=== PATIENT | female | born 1980 | race Caucasian/White ===

== ENCOUNTER 2024-12-23 22:54 | Inpatient (IN) | payer OTHER, SELFPAY ==
[2024-12-23] VITALS (7 sets, daily range): BP systolic 131–153; BP diastolic 82–104; BMI 34.7
[2024-12-23 17:07] LABS: % Basophils 0.5 % (0-2); % Eosinophils 0.9 % (0-6); % Immature Granulocytes 0.5 % (0-0.5); % Monocytes 4.7 % (1.7-9.3); % Neutrophils 79.4 % (42.2-75.2); Absolute Basophils 0.1 10^3/uL (0-0.2); Absolute Eosinophils 0.2 10^3/uL (0-0.7); Absolute Immature Granulocytes 0.1 10^3/uL (0-0.05); Absolute Lymphocytes 2.3 10^3/uL (1.2-3.4); Absolute Monocytes 0.8 10^3/uL (0.1-0.6); Absolute Neutrophils 13.1 10^3/uL (1.4-6.5); Hematocrit 43.8 % (37.0-47.0); Hemoglobin 15.3 g/dL (12.0-16.0); Mean Corp Hgb Conc. 34.9 g/dL (33.0-37.0); Mean Corpuscular Hgb 29.3 pg (27.0-31.0); Mean Corpuscular Volume 83.7 fL (81.0-99.0); Mean Platelet Volume 9.1 fL (7.4-10.4); Nucleated Red Blood Cells % 0 %; Platelet Count 274 10^3/uL (130-400); Red Blood Cell Count 5.23 10^6/uL (4.20-5.40); Red Cell Dist. Width 13.4 % (11.5-14.5); White Blood Cell Count 16.5 10^3/uL (4.8-10.8)
[2024-12-23 17:25] LABS: ALT (SGPT) 38 U/L (0-35); AST (SGOT) 34 U/L (14-36); Alkaline Phosphatase 78 U/L (38-126); Blood Urea Nitrogen 16 mg/dl (7-17); Calcium 9.1 mg/dl (8.4-10.2); Carbon Dioxide 28 mmol/L (22-30); Chloride 103 mmol/L (98-107); Glucose 98 mg/dl (70-99); Lipase 43 U/L (23-300); Potassium 4.5 mmol/L (3.5-5.1); Sodium 136 mmol/L (135-145); Total Bilirubin 0.8 mg/dl (0.2-1.3); Total Protein 6.9 g/dl (6.3-8.2); eGFR > 60.00
[2024-12-23] MEDS: OMNIPAQUE 50 ML PO (18:11)
[2024-12-23] MEDS: LR 1000 IV (18:27)
--- NOTE | 2024-12-23 21:30 | ED.GENMED ---
History of Present Illness
General
Chief Complaint: Abdominal Pain
Source: patient and spouse
Exam Limitations: none
Time Seen by Provider: 12/23/24 17:35
Nursing documentation reviewed up to this point in time: agreed with
History of Present Illness
History of Present Illness:
44-year-old female presents emergency department due to jaydon red bloody diarrhea, headache and dizziness, abdominal pain since this morning. She denies fevers, but just does not feel well. She had a partial hysterectomy in September 2024. This
was at [facility].
Past History
Past History
ED Past Medical History: Psychiatric (Anxiety, ADHD, PTSD), Other (Back pain, neuropathy, constipation) and Other (Zhanna-Danlos, mast cell activation, adenomyosis)
ED Past Surgical History: Gynecological (Partial hysterectomy, endometrial ablation, abscess)
Social History
Tobacco: Non-smoker
Alcohol: None
Drug: None
Personal:
Living: with family
Review of Systems
Review of Systems
Allergies reviewed?: Yes
All Other Systems: Not applicable
Constitutional: Reports no symptoms
EENT: Reports no symptoms
Respiratory: Reports no symptoms
Cardiac: Reports no symptoms
ABD/GI: Reports abdominal pain, diarrhea and bloody stools
: Reports no symptoms
Musculoskeletal: Reports no symptoms
Skin: Reports no symptoms
Neurological: Reports no symptoms
Endocrine: Reports no symptoms
Hematologic/Lymphatic: Reports no symptoms
Psychiatric: Reports no symptoms
Phy Exam
Physical Exam
Physical Exam:
Physical Exam
General: no apparent distress, not acutely ill
Neck: supple. no meningeal signs. normal posterior pharynx
Heart: s1/s2 regular rate and rhythm, no murmur. equal radial
pulses.
HEENT: Pupils equal round reactive to light, EOMI
Lungs: no acute respiratory distress. clear bilaterally
Abdomen: normal bowel sounds. Periumbilical and left sided abdominal tenderness, no rebound or guarding. no CVAT
Neuro: alert and oriented. no focal neurological deficits
Skin: no rash
Psychiatric: well kept. interactive and cooperative
Extremities: no edema. no calf tenderness. negative homans. good distal pulses
Course
Orders/Labs/Results
Orders:
Orders
12/23/24 16:59
Complete Blood Count/With Diff Urgent
Comprehensive Metabolic Panel Urgent
Lipase Urgent
12/23/24 17:49
Iohexol [Omnipaque] See Protocol PO NOW STA
12/23/24 17:50
CT Abd/pel W Iv And Oral Contr Urgent
Comment:
Reason For Exam: mid/lower abdominal abd pain, tenderness
Lactated Ringers [Lr] 1,000 ml IV BOLUS
12/23/24 17:52
IV Insert/Care/Rem.- Treatment PRN
12/23/24 21:35
Piperacillin/Tazo 4.5 Gram [Zosyn] 4.5 gram in 100 ml IV NOW
Abnormal Lab Results
12/23/24
16:59
WBC 16.5 H 10^3/uL
(4.8-10.8)
Abs Immat Gran (auto) 0.1 H 10^3/uL
(0-0.05)
Absolute Neuts (auto) 13.1 H 10^3/uL
(1.4-6.5)
Absolute Monos (auto) 0.8 H 10^3/uL
(0.1-0.6)
Neutrophils % 79.4 H %
(42.2-75.2)
Lymphocytes % 14.0 L %
(20.5-51.1)
ALT 38 H U/L
(0-35)
12/23/24 16:59
12/23/24 16:59
Vital Signs
Initial and Last Documented VS:
Initial Vital Signs
Temp Pulse Resp BP Pulse Ox
98.0 F 122 20 153/104 100
12/23/24 16:46 12/23/24 16:46 12/23/24 16:46 12/23/24 16:46 12/23/24 16:46
Last Documented Vital Signs
Temp Pulse Resp BP Pulse Ox
98.0 F 122 20 136/87 100
12/23/24 16:46 12/23/24 16:46 12/23/24 16:46 12/23/24 20:00 12/23/24 20:00
MDM/Problems Addressed
Differential Diagnosis Includes:
Infectious colitis, ischemic colitis
MDM/Problems Addressed:
44-year-old female with acute colitis, suspect infectious cause. Zosyn ordered. Admit to hospitalist.
Chronic conditions affecting care: Previous abdomnial surgery
Acute Exacerbation and/or Progression of Chronic Illness: Previous abdomnial surgery
*Radiology
Radiology exam reviewed: radiology read reviewed (CT abdomen pelvis shows colitis)
*Pulse Oximetry
Patient hypoxic: no
*Critical Care Note
Total Time (30-74mins, 75-104mins- exclusive of procedures): Not Applicable
Patient Management
Social determinants of health affecting care: Living situation and Strong social support
Discussion with other providers: Hospitalist
Escalation/DeEscalation of care consider admission/obs:
Admission indicated
ED Attending Note
-
Portions of this chart may have been created with voice recognition software.� Occasional wrong word or��sound alike� substitutions may have occurred due to the inherent limitations of voice recognition software.
Discharge Plan
Departure
Patient Disposition: Admit
Date of Disposition: 12/23/24
Time of Disposition: 21:38
Admit to: Med/Surg
Presentation/result/management discussed w/ accepting MD/DO: Hospitalist
Patient with high blood pressure during this ER visit?: Yes
Condition: Fair
Discharge Problem:
Acute colitis
Referrals:
Grace Laughlin MD [Family Provider] -
Interventions
Interventions:
*Risk Screen - Suicide Last Done: 12/23/24 18:28
*General Assessment Last Done: 12/23/24 18:28
*Neglect/Abuse Screening Last Done: 12/23/24 18:28
ED- Fall Risk Assessment Last Done: 12/23/24 18:28
*ED COVID-19 Vaccine History Last Done: 12/23/24 18:28
GO-Qifkch-Uoprmozypu Assessment Last Done: 12/23/24 18:28
Discharge Date and Time
Print Language: SOL[place] ISLANDER
[2024-12-23] MEDS: ZOSYN 100 IV (21:41)
--- NOTE | 2024-12-23 22:38 | HPS.HSE ---
Family Physician
-
Family Physician: Grace Laughlin MD
Chief Complaint
-
Abd pain, Bloody diarrhea
History of Present Illness
Patient is a 44y F with PMH significant for fibromyalgia, POTS and MAST cell syndrome who presents to ED complaining of crampy abdominal pain and bloody diarrhea for the past 24 hours. Patient states that she started with crampy lower abdominal
pain yesterday. She has had poor appetite in general. She had shakes / chills on Thursday but no recorded fever. Today patient has had multiple episodes of loose bowels. The last was around noon and included bright red blood.
Patient notes that she has had similar pain for months now. She underwent hysterectomy at [facility] in September and this was complicated by post-op infection / abscess. She had a drain in place and was on abx until late October 2024.
Patient states she has not had any prior colonoscopy - has concerns regarding her POTS / ability tolerate prep process.
Medical History
Past Medical History
Past Medical History: Reports Other
Additional Past Medical History:
POTS
Fibromyalgia
Mast Cell Activation Syndrome
Chronic Pain Syndrome
Zhanna Danlos
GERD / Esophagitis
Anxiety / Depression
Past Surgical History: Reports Other
Additional Past Surgical History:
Hysterectomy (09/2024)
Facial Reconstruction
Endometrial Ablation
Social History
Tobacco: Smoker (Current every day smoker. 1/2 ppd for total of 10 pack years.)
Alcohol: Occasional
Drug: None
Personal:
Living: With Family
Family History
Family History: Not pertinent
Allergies / Home Medications
Allergies reflects when Allergies were last updated in [employer].
Home Medications with original date entered in [employer]
Allergy/Medication List:
Allergies
Allergy/AdvReac Type Severity Reaction Status Date / Time
Cephalosporins Allergy Unknown Verified 12/23/24 16:54
Latex, Natural Rubber Allergy Unknown Verified 12/23/24 16:54
Home Medications
buspirone 10 mg tablet 10 mg PO TID 12/23/24
cholecalciferol (vitamin D3) 25 mcg (1,000 unit) tablet 50 mcg PO DAILY 12/23/24
cyclobenzaprine 10 mg tablet 10 mg PO TID PRN muscle spasm 12/23/24
famotidine 20 mg tablet (Pepcid) 20 mg PO BID 12/23/24
fexofenadine 180 mg tablet 180 mg PO HS 12/23/24
fluticasone furoate 27.5 mcg/actuation nasal spray,suspension 1 spray intranasal DAILY 12/23/24
gabapentin 300 mg capsule 600 mg PO DAILY 12/23/24
hydroxyzine HCl 10 mg tablet 10 mg PO TID PRN pruritis 12/23/24
hydroxyzine HCl 25 mg tablet 25 mg PO HS 12/23/24
lisdexamfetamine 30 mg capsule 30 mg PO DAILY 12/23/24
nortriptyline 25 mg capsule 25 mg PO BID 12/23/24
omeprazole 40 mg capsule,delayed release 40 mg PO DAILY 12/23/24
propranolol 20 mg tablet 20 mg PO TID 12/23/24
Review of Systems
-
History Source: Patient
A 12 point ROS was completed and negative except as noted: Yes
Constitutional: Reports Fever, Fatigue and Chills
EENT: Denies Sore Throat
Respiratory: Denies Cough or Trouble Breathing
Cardiac: Denies Chest Pain or Palpitations
Abdomen/GI: Reports Abdominal Pain, Diarrhea, Bloody Stools and Anorexia; Denies Nausea, Vomiting or Black Stools
: Denies Dysuria, Frequency or Flank Pain
Musculoskeletal: Denies Joint Pain or Edema
Neurological: Denies Dizzy or Headache
Psych: Denies Depression or Anxiety
Physical Exam
Vital Signs
Vital Signs
Temp Pulse Resp BP Pulse Ox
98.0 F 122 20 133/92 99
12/23/24 16:46 12/23/24 16:46 12/23/24 16:46 12/23/24 21:40 12/23/24 21:40
Physical Exam
General: Other (Tearful, anxious 44y F.)
HEENT: Moist mucous membranes and PERRLA
Respiratory: Clear; No Wheezes, Rales or Rhonchi
Cardiac: S1/S2 and Regular Rhythm; No Murmur
GI: Soft, Non Distended, Normal Bowel Sounds and Other (Pos tenderness lower abdomen - LLQ > RLQ.)
Musculoskeletal: No Clubbing, No Cyanosis and No Edema
Neuro: AO x 3
Laboratory Results
-
12/23/24 16:59
12/23/24 16:59
Laboratory Results
Total Bilirubin 0.8 mg/dl (0.2-1.3) 12/23/24 16:59
AST 34 U/L (14-36) 12/23/24 16:59
ALT 38 U/L (0-35) H 12/23/24 16:59
Alkaline Phosphatase 78 U/L (38-126) 12/23/24 16:59
Lipase 43 U/L (23-300) 12/23/24 16:59
Impression/Plan
-
A/P: Patient is a 44y F with PMH significant for chronic pain, fibromyalgia and POTS who presents to ED complaining of crampy abdominal pain and bloody diarrhea.
Acute Descending Colitis
- Admit for further evaluation and treatment.
- Suspect that this is acute, infectious colitis given presentation / symptoms.
- Similarity to post-hysterectomy discomfort is likely coincidental given location of inflammation / infection.
- IV abx with Zosyn for now.
- Check stool studies / cultures.
- Supportive care with IVFs, pain control, etc.
- GI evaluation for additional recommendations.
- Would likely benefit from eventual colonoscopy - if prep can be arranged / tolerated.
s/p Hysterectomy
Post-Op Infection / Abscess
- CT done today shows no evidence of residual abscess.
POTS
Fibromyalgia
Mast Cell Activation Syndrome
Chronic Pain Syndrome
- Stable. Continue usual outpatient medications regimen without changes.
- Follow-up with usual outpatient providers after discharge.
DVT Prophylaxis: SCDs
Code Status: Full
[2024-12-23 22:47] LABS: Lactic Acid 0.7 mmol/L (0.7-2.0)
[2024-12-24] VITALS: BP 130/93
[2024-12-24 01:23] VITALS: BP 102/68
[2024-12-24 01:34] VITALS: BP 102/68
[2024-12-24 01:35] VITALS: BMI 34.8
[2024-12-24] MEDS: NSS 1000 IV ×2 (01:49→10:55)
[2024-12-24] MEDS: TORADOL 15 MG IV (01:50)
[2024-12-24] MEDS: ZOSYN 50 IV ×2 (04:16→09:07)
[2024-12-24 05:37] LABS: Hematocrit 36.7 % (37.0-47.0); Hemoglobin 12.9 g/dL (12.0-16.0); Mean Corp Hgb Conc. 35.1 g/dL (33.0-37.0); Mean Corpuscular Hgb 29.3 pg (27.0-31.0); Mean Corpuscular Volume 83.4 fL (81.0-99.0); Mean Platelet Volume 9.4 fL (7.4-10.4); Platelet Count 219 10^3/uL (130-400); Red Cell Dist. Width 13.3 % (11.5-14.5); White Blood Cell Count 10.2 10^3/uL (4.8-10.8)
[2024-12-24 05:47] LABS: Blood Urea Nitrogen 13 mg/dl (7-17); Calcium 7.9 mg/dl (8.4-10.2); Carbon Dioxide 25 mmol/L (22-30); Chloride 105 mmol/L (98-107); Estimated Creatinine Clearance 90 ml/min; Glucose 90 mg/dl (70-99); Potassium 3.8 mmol/L (3.5-5.1); Sodium 134 mmol/L (135-145); eGFR > 60.00
[2024-12-24 07:31] VITALS: BP 101/69
--- NOTE | 2024-12-24 08:15 | CON.GI ---
Consultation
-
Date/Time Consultation Requested: 12/24/24117
Date/Time Consultation Performed: 12/24/24824
Requesting Provider: Dr Dahl
Performing Provider: Dr. Castle / Katarina Clement PA-C
Reason for Consultation: colitis
Medical History
Chief Complaint / HPI
Chief Complaint: bloody diarrhea
History of Present Illness:
This is a 44 year old female with a past medical history of POTS, fibromyalgia, Zhanna Danlos, GERD, anxiety, depression, GERD and IBS-mixed who presented to the ER yesterday with crampy abdominal pain and bloody diarrhea, described as bright red
blood. Symptoms came on suddenly. No fever, chills, nausea or vomiting. Initial ER labs showed elevated WBC count at 16.5. LFTs were normal with the exception of slightly elevated ALT (38). CT abdomen/pelvis showed moderate acute colitis of the
descending colon and mild colitis of the sigmoid and rectum. Also noted is mild fatty liver. She was started on IV antibiotics. She states she took Imodium yesterday and has not had any recurrence of the diarrhea since then. No sick contacts or
recent travel. She was recently on antibiotics for a prolonged course as she developed a post-op infection/abscess following hysterectomy in September 2024. She reports a typical baseline bowel pattern with both diarrhea and constipation, and was
previously diagnosed with IBS-mixed, but has never had rectal bleeding like this before. She is followed by GI at [place], but is looking for a new GI doctor that is closer. She has never had a colonoscopy. This was attempted about 1 year ago, but
she did not tolerate the prep due to her underlying POTS. There is no family history of colon cancer or IBD.
Past Medical History
Past Medical History: Other (POTS, fibromyalgia, Zhanna Danlos, GERD, anxiety, depression, GERD and IBS-mixed)
Past Surgical History: Other (hysterectomy 09/2024 ([place]), endometrial ablation, facial reconstruction)
Social History
Tobacco: Smoker (1/2 PPD)
Alcohol: Occasional (1-2 drinks/week)
Drug: None
Living: With Family
Employment: Not Employed
Family History
Family History: Other (No family history of GI malignancies or IBD)
Allergies / Home Medications
Allergy/AdvReac Type Severity Reaction Status Date / Time
Cephalosporins Allergy Unknown Verified 12/23/24 16:54
Latex, Natural Rubber Allergy Unknown Verified 12/23/24 16:54
�Medication �Instructions �Recorded
buspirone 10 mg tablet 10 mg PO TID 12/23/24
cholecalciferol (vitamin D3) 25 50 mcg PO DAILY 12/23/24
mcg (1,000 unit) tablet
cyclobenzaprine 10 mg tablet 10 mg PO TID PRN muscle spasm 12/23/24
famotidine 20 mg tablet (Pepcid) 20 mg PO BID 12/23/24
fexofenadine 180 mg tablet 180 mg PO HS 12/23/24
fluticasone furoate 27.5 1 spray intranasal DAILY 12/23/24
mcg/actuation nasal
spray,suspension
gabapentin 300 mg capsule 600 mg PO DAILY 12/23/24
hydroxyzine HCl 10 mg tablet 10 mg PO TID PRN pruritis 12/23/24
hydroxyzine HCl 25 mg tablet 25 mg PO HS 12/23/24
lisdexamfetamine 30 mg capsule 30 mg PO DAILY 12/23/24
nortriptyline 25 mg capsule 25 mg PO BID 12/23/24
omeprazole 40 mg capsule,delayed 40 mg PO DAILY 12/23/24
release
propranolol 20 mg tablet 20 mg PO TID 12/23/24
Review of Systems
-
History Source: Patient
All other systems: A 12 pt ROS was Negative except as stated above in HPI
Vital Signs
Temp Pulse Resp BP Pulse Ox
98.4 F 83 20 101/69 96
12/24/24 07:44 12/24/24 01:34 12/24/24 01:34 12/24/24 07:31 12/24/24 07:44
Physical Exam
Exam
General: Well Developed, Well Nourished and No Apparent Distress
Respiratory: Clear
Cardiac: Regular Rhythm
GI: Soft, Non Distended, Normal Bowel Sounds and Tender (+mild generalized tenderness of the lower abdomen, worse in LLQ)
Skin: Warm and Dry
Neuro: AO x 3
Psych: Calm
Results
WBC 10.2 10^3/uL (4.8-10.8) 12/24/24 05:24
Hgb 12.9 g/dL (12.0-16.0) 12/24/24 05:24
Hct 36.7 % (37.0-47.0) L 12/24/24 05:24
MCV 83.4 fL (81.0-99.0) 12/24/24 05:24
Plt Count 219 10^3/uL (130-400) D 12/24/24 05:24
Absolute Neuts (auto) 13.1 10^3/uL (1.4-6.5) H 12/23/24 16:59
Sodium 134 mmol/L (135-145) L 12/24/24 05:24
Potassium 3.8 mmol/L (3.5-5.1) 12/24/24 05:24
Chloride 105 mmol/L (98-107) 12/24/24 05:24
Carbon Dioxide 25 mmol/L (22-30) 12/24/24 05:24
BUN 13 mg/dl (7-17) 12/24/24 05:24
Creatinine 0.8 mg/dL (0.6-1.0) 12/24/24 05:24
Calcium 7.9 mg/dl (8.4-10.2) L 12/24/24 05:24
Total Bilirubin 0.8 mg/dl (0.2-1.3) 12/23/24 16:59
AST 34 U/L (14-36) 12/23/24 16:59
ALT 38 U/L (0-35) H 12/23/24 16:59
Alkaline Phosphatase 78 U/L (38-126) 12/23/24 16:59
Lipase 43 U/L (23-300) 12/23/24 16:59
Diagnostic Image Results:
CT abdomen/pelvis w/ IV and oral contrast 12/23/24:
1. MODERATE ACUTE COLITIS throughout the DESCENDING COLON. Mild colitis in the sigmoid colon and rectum. Diagnostic possibilities are (1) acute infectious colitis, (2) acute ischemic colitis, or (3) acute ulcerative colitis.
2. Mild diffuse hepatic steatosis.
3. Previous hysterectomy.
4. Grade 1 anterolisthesis of L5 on S1 secondary to bilateral L5 pars interarticularis spondylolysis.
Prior GI Procedures:
EGD: ~1 year ago, at [place]
Colonoscopy: never
Assessment / Plan
-
44 year old female with a history of POTS, fibromyalgia, Zhanna Danlos, GERD, anxiety, depression, GERD and IBS-mixed currently admitted with acute colitis after sudden onset of crampy abdominal pain and bloody diarrhea.
IMPRESSION / PLAN:
Acute Colitis of the descending colon/sigmoid and rectum
- etiology of colitis: infectious vs inflammatory (IBD) vs ischemic (less likely)
- stool cultures including C diff (given recent antibiotics) to rule out infectious cause
- fecal calprotectin
- continue empiric IV Zosyn
- continue IV fluids
- BRAT diet, as tolerated
- pt will need eventual colonoscopy - arrange outpatient GI follow-up
Fatty Liver
- noted on CT imaging
- LFTs normal with the exception of ALT 38
- further workup can be done outpatient
GERD
- well-controlled on omeprazole and famotidine
All other medical issues managed as per hospitalist. We will follow.
-
-
Thank you for consultation and allowing me to participate in the patient's care. Please call the project management consultant GI physician during the after hours with any questions or concerns.
[2024-12-24] MEDS: VITAMIN D3 (cholecalciferol) 50 MCG PO (09:05)
[2024-12-24] MEDS: PEPCID 20 MG PO (09:05)
[2024-12-24] MEDS: BUSPAR 10 MG PO (09:05)
[2024-12-24] MEDS: PAMELOR 25 MG PO (09:07)
[2024-12-24] MEDS: INDERAL 20 MG PO (09:07)
[2024-12-24] MEDS: PROTONIX 40 MG PO (09:07)
[2024-12-24] MEDS: NEURONTIN 600 MG PO (09:07)
[2024-12-24] MEDS: CIPRO 400 MG 200 IV (10:53)
[2024-12-24] MEDS: NSS IV (10:59)
[2024-12-24] MEDS: FLAGYL 500 MG 100 IV (12:54)
--- NOTE | 2024-12-24 12:56 | W.PN.HOSP.TC ---
Addendum entered and electronically signed by Bishop Valente DO 01/02/25 13:34:
Sepsis due to acute infectious colitis -unknown organism.
Original Note:
Today's Communication/Plan
-
Diet as tolerated
Possible discharge
Assessment / Plan
Assessment / Plan
Gen-AAOx3, NAD
HEENT-NC, AT, anicteric, clear oral mm
Neck-supple
CV-reg, no M, +S1/S2
Lungs-clear B/L
Abd-soft, NT, ND
Ext-no edema
Musculoskeletal-no cyanosis, clubbing
Skin-warm and dry
Neuro-grossly non-focal
Psych-calm, cooperative
Acute colitis -involving descending colon, noted on CT. Suspect infectious etiology. Doubt ischemia or inflammatory colitis.
Symptoms improved rapidly overnight. Leukocytosis resolved. Has not had any diarrhea in the hospital. Diet as tolerated.
Appreciate GI service. Patient would like to follow-up with GI in [facility].
Hyponatremia -mild, 134. Monitor for now. Getting IV fluids.
POTS syndrome
Obesity due to excess calories
Full code
Dispo -potential discharge sometime in the next 24 hours if tolerating diet and stable. Patient agreeable.
Anticipated Discharge: Within 24 hours
Subjective/Interval History
-
Date of Service: December 24, 2024
Patient seen and examined. Overall feeling better. No complaints.
Objective Data
-
Labs:
Laboratory Results
12/24/24
05:24
WBC 10.2
Hgb 12.9
Hct 36.7 L
Plt Count 219 D
Sodium 134 L
Potassium 3.8
Chloride 105
Carbon Dioxide 25
BUN 13
Creatinine 0.8
Glucose 90
Calcium 7.9 L
Vital Signs:
Vital Signs
Temp Pulse Resp BP Pulse Ox
98.4 F 83 20 101/69 96
12/24/24 07:44 12/24/24 01:34 12/24/24 01:34 12/24/24 07:31 12/24/24 07:44
I&O
12/23/24 12/24/24 12/25/24
06:59 06:59 06:59
Intake Total 50 / 50
Balance 50 / 50
Review of Systems
-
History Source: Patient
All other systems: Reviewed and negative
--- NOTE | 2024-12-24 13:03 | W.DS.TRANS ---
DC Summary - Production Generalist
-
Discharge Instructions:
Discharge Diagnosis/Procedures Acute colitis
Diet Low Residue
Activity As tolerated
Driving Restrictions As prior to admission
Bathing Restrictions None
Instructions:
Stand-Alone Forms:
Changes to Home Medications: No
Discharge Medications:
DC Medications w/original date entered in [facility] [employer]
buspirone 10 mg tablet 10 mg PO TID Mental Health/Anxiety 12/23/24
cholecalciferol (vitamin D3) 25 mcg (1,000 unit) tablet 50 mcg PO DAILY Supplement 12/23/24
cyclobenzaprine 10 mg tablet 10 mg PO TID PRN muscle spasm 12/23/24
famotidine 20 mg tablet (Pepcid) 20 mg PO BID Gastrointestinal Issue 12/23/24
fexofenadine 180 mg tablet 180 mg PO HS Allergies 12/23/24
fluticasone furoate 27.5 mcg/actuation nasal spray,suspension 1 spray intranasal DAILY Congestion 12/23/24
gabapentin 300 mg capsule 600 mg PO DAILY Pain 12/23/24
hydroxyzine HCl 10 mg tablet 10 mg PO TID PRN pruritis 12/23/24
hydroxyzine HCl 25 mg tablet 25 mg PO HS itch 12/23/24
lisdexamfetamine 30 mg capsule 30 mg PO DAILY Mental Health/Anxiety 12/23/24
nortriptyline 25 mg capsule 25 mg PO BID Mental Health/Anxiety 12/23/24
omeprazole 40 mg capsule,delayed release 40 mg PO DAILY gerd 12/23/24
propranolol 20 mg tablet 20 mg PO TID Blood Pressure 12/23/24
Home Medication Changes
Pending Results: No
[2024-12-24 13:53] VITALS: BP 97/65
--- NOTE | 2024-12-24 14:37 | CM ---
CM reviewed medical records. Plan for discharge to home with no needs.
PLAN: Home, no needs.
--- NOTE | 2024-12-26 14:52 | PN.CDI ---
CDI
- -
CDI:
Physician Documentation Request
Admit Date: 12/23/24 22:54
Dear Doctor Sidra,
Please review the following and provide your response in the progress notes.
Clinical Indicators:
- On admission: WBC 16.5, HR 122
- 2L IVF
- IV abx Cipro, Flagyl, Zosyn
- 12/26 DC Summary 'Acute infectious colitis'
- pmh fibromyalgia,
Please clarify which most accurately describes the patient:
Sepsis due to acute infectious colitis
Systemic manifestations of infection, with 2 or more SIRS criteria which include:
Fever > 100.4 degrees F or hypothermia < 96.8 degrees F
Leukocytosis - WBC > 12,000 or leukopenia, WBC < 4,000 or > 10% bands
Tachycardia - > 90 beats per minute
Tachypnea - RR > 20 breaths per minute or PaCO2 < 32 mmHg
Source: Merck Manual 2013
Indicate the known or suspected organism
Indicate the known or suspected underlying infection, such as UTI, pneumonia or cellulitis
Indicate if a suspected bacterial infection of unknown source
Indicate if associated with an implanted device such as a F/C, PICC line, orthopedic hardware etc.
Indicate if there is associated organ dysfunction, such as renal or respiratory failure
SIRS due to a non-infectious source
Indicate the known or suspected etiology
Indicate if there is associated organ dysfunction, such as renal or respiratory failure
Other
Use of terms such as suspected, likely, concern for, or probable (associated with a specific diagnosis that is being evaluated, monitored, or treated as if it exists) are acceptable and can be coded in the inpatient setting, when documented at the
time of discharge.
Thank you,
Edison Fernández RN
CDI Specialist
Please use your independent medical judgment in providing your response.
[2024-12-29 17:52] LABS: Calprotectin, Fecal 695 ug/g (<=49)
== END 2024-12-24 16:40 | disposition home or self-care (01) | DRG 872 ==
LOC: ED 22:54
PROVIDERS: Emergency Medicine; ADMITTING PHYSICIAN Hospitalist; ATTENDING PHYSICIAN Hospitalist; CONSULT PHYSICIAN Internal Medicine Gastroenterology; EMERGENCY PHYSICIAN Emergency Medicine; FAMILY PHYSICIAN Family Medicine
DX: A41.9 Sepsis, unspecified organism (principal); A09 Infectious gastroenteritis and colitis, unspecified; E87.1 Hypo-osmolality and hyponatremia; Q79.60 Ehlers-Danlos syndrome, unspecified; D89.40 Mast cell activation, unspecified; F17.210 Nicotine dependence, cigarettes, uncomplicated; F32.A Depression, unspecified; F41.9 Anxiety disorder, unspecified; G89.4 Chronic pain syndrome; K58.2 Mixed irritable bowel syndrome; K21.00 Gastro-esophageal reflux disease with esophagitis, without bleeding; K76.0 Fatty (change of) liver, not elsewhere classified; G90.A Postural orthostatic tachycardia syndrome [POTS]; F90.9 Attention-deficit hyperactivity disorder, unspecified type; E66.09 Other obesity due to excess calories; M79.7 Fibromyalgia; Z68.34 Body mass index [BMI] 34.0-34.9, adult; Z88.1 Allergy status to other antibiotic agents; Z79.899 Other long term (current) drug therapy
CPT/HCPCS: 74177; 80048; 80053; 83605; 83690; 83993; 85025; 85027; 87045; 87046; 87324; 87427; 87449; 96361; 96365; 99284; 99406; Q9967

== ENCOUNTER 2025-09-07 17:28 | Emergency (ER) | payer OTHER, SELFPAY ==
[2025-09-07 17:38] VITALS: BP 146/99
[2025-09-07 17:58] LABS: Hematocrit 43.8 % (37.0-47.0); Hemoglobin 15.4 g/dL (12.0-16.0); Mean Corp Hgb Conc. 35.2 g/dL (33.0-37.0); Mean Corpuscular Volume 84.7 fL (81.0-99.0); Nucleated Red Blood Cells % 0 %; Platelet Count 306 10^3/uL (130-400); Red Cell Dist. Width 12.6 % (11.5-14.5)
[2025-09-07 17:59] LABS: Urine Character Clear (Clear)
[2025-09-07 18:17] LABS: Urine Red Blood Cell 0-2 /HPF (0-2); Urine Squamous Cell >30 /LPF (Few); Urine White Cell 0-2 /HPF (0-5)
[2025-09-07 18:24] LABS: ALT (SGPT) 24 U/L (0-35); AST (SGOT) 24 U/L (14-36); Albumin 4.4 g/dl (3.5-5.0); Alkaline Phosphatase 76 U/L (38-126); Blood Urea Nitrogen 12 mg/dl (7-17); Calcium 9.4 mg/dl (8.4-10.2); Carbon Dioxide 28 mmol/L (22-30); Chloride 100 mmol/L (98-107); Glucose 87 mg/dl (70-99); Lipase 89 U/L (23-300); Potassium 4.2 mmol/L (3.5-5.1); Sodium 132 mmol/L (135-145); Total Protein 7.5 g/dl (6.3-8.2); eGFR > 60.00
[2025-09-07 18:39] VITALS: BP 145/106
[2025-09-07 18:40] VITALS: BMI 36.5
[2025-09-07 19:00] VITALS: BP 142/103
--- NOTE | 2025-09-07 19:01 | ED.GENMED ---
History of Present Illness
General
Chief Complaint: Abdominal Symptoms
Source: patient and records
Exam Limitations: none
Time Seen by Provider: 09/07/25 18:36
History of Present Illness
History of Present Illness:
45yoF with a history of POTS, Ehler's Danlos syndrome, MAST cell activation syndrome, and fibromyalgia presenting for evaluation of diarrhea. Patient has been experiencing loose stools for about 2 weeks. She started to feel 'flu-mandy' 2 days ago.
Her diarrhea worsened today. Her bowel movements are described as greasy and explosive. She states she just does not feel well. She also reports an shortness of breath which feels worse than usual. She denies any hematochezia, vomiting, fevers.
Patient was hospitalized in December for acute colitis and stayed overnight. Stool studies were negative and she was treated with Levaquin and Flagyl. They attempted to do an outpatient colonoscopy at [facility] but she was unable to tolerate the prep
due to her POTS. She had a flex sigmoidoscopy which was reportedly normal as well as a negative Cologuard test. No recent travel, sick contacts, suspicious food intake, or recent antibiotics.
Past History
Past History
ED Past Medical History: Psychiatric (Anxiety, ADHD, PTSD), Other (Back pain, neuropathy, constipation) and Other (Zhanna-Danlos, mast cell activation, adenomyosis)
ED Past Surgical History: Gynecological (Partial hysterectomy, endometrial ablation, abscess)
Social History
Tobacco: Non-smoker
Alcohol: None
Drug: None
Personal:
Living: with family
Phy Exam
General Physical Exam
General Presentation: well appearing and no apparent distress
General Skin: warm and dry
General Habitus: normal
General Mental: alert
ENT Exam
ENT Exam: normocephalic
Cardiovascular Exam
Cardiovascular Exam: regular rate/rhythm
Pulmonary Exam
Pulmonary Exam: lungs clear, no respiratory distress, no rales, no crackles, no rhonchi and no wheezing
Gastrointestinal Exam
Gastrointestinal Exam: soft, non distended and other (+Tenderness throughout lower abdomen. Abdomen soft, nondistended. No rebound or guarding.)
Neurological Exam
Neurological Exam: alert
[place] Coma Scale
Eye Opening: Spontaneous
Verbal Response: Oriented
Motor Response: Obeys Commands
GCS Total Score: 15
Skin Exam
Skin Exam: normal color and warm/dry
Psychiatric Exam
Psychiatric Exam: normal mood/affect
Course
Orders/Labs/Results
Orders:
Orders
09/07/25 17:49
Complete Blood Count/With Diff Urgent
Comprehensive Metabolic Panel Urgent
Lipase Urgent
Magnesium Urgent
Comment: ADD ON
Urinalysis Reflex To Culture Urgent
Date Specimen was Collected: 09/07/25
Time Specimen was Collected: 17:41
Urine Microscopic Reflex Cult Urgent
Urine Culture Urgent
BEREKET Source: U
Specimen Description:
Date Specimen was Collected: 09/07/25
Time Specimen was Collected: 17:41
09/07/25 19:00
Add On- LAB Urgent
Tests Added?: magnesium
Electrocardiogram (*1) Urgent
Reason for Study: Shortness of Breath
CT Abd/pelvis W Iv Cont Urgent
Comment:
Reason For Exam: lower abd pain, diarrhea
EKG- Treatment ONCE
Stool Culture Urgent
BEREKET Source: Feces/Stool
Specimen Description:
Date Specimen was Collected: 09/07/25
Time Specimen was Collected: 19:22
0.9% Sodium Chloride 1000 ml [Nss] 1,000 ml IV BOLUS
Ondansetron Injectable [Zofran] 4 mg IV NOW STA
09/07/25 19:25
Troponin I Urgent
Abnormal Lab Results
09/07/25
17:49
WBC 14.6 H 10^3/uL
(4.8-10.8)
Abs Immat Gran (auto) 0.1 H 10^3/uL
(0-0.05)
Absolute Neuts (auto) 8.5 H 10^3/uL
(1.4-6.5)
Absolute Lymphs (auto) 4.5 H 10^3/uL
(1.2-3.4)
Absolute Monos (auto) 1.0 H 10^3/uL
(0.1-0.6)
Immature Gran % 0.6 H %
(0-0.5)
Sodium 132 L mmol/L
(135-145)
Urine Ketones 3+ A
(Negative)
Leukocyte Esterase Rfl 1+ A
(Negative)
Urine Bacteria (Reflex) Few A
(Negative)
Urine Albumin (Reflex) 1+ A
(Neg - Trace)
09/07/25 17:49
09/07/25 17:49
Vital Signs
Initial and Last Documented VS:
Initial Vital Signs
Temp Pulse Resp BP Pulse Ox
98.3 F 96 16 146/99 100
09/07/25 17:38 09/07/25 17:38 09/07/25 17:38 09/07/25 17:38 09/07/25 17:38
Last Documented Vital Signs
Temp Pulse Resp BP Pulse Ox
98.3 F 75 13 142/103 100
09/07/25 17:38 09/07/25 19:30 09/07/25 19:30 09/07/25 19:00 09/07/25 19:30
MDM/Problems Addressed
Differential Diagnosis Includes:
45yoF here with diarrhea and fatigue. Hospitalized for colitis earlier this year. VSS. She is well-appearing in no distress. No signs of peritonitis on abdominal exam. Differential diagnosis includes but is not limited to: Viral illness,
gastroenteritis, infectious colitis, diverticulitis
Initial ED plan: Workup initiated in triage and white count is elevated at 14.6 which is nonspecific. Sodium 132, remainder of electrolytes are normal. Renal function also normal. Will check magnesium, troponin/EKG, stool culture, and CT abdomen.
IV Zofran and fluid bolus for symptoms.
*Pulse Oximetry
SaO2: 100
Oxygen Mode of Delivery: Room air
Patient hypoxic: no
*EKG
Interpreted by ED Provider?: Yes
EKG Intrepretation Date: 09/07/25
Heart Rate: 76
Rate: normal
Rhythm: sinus
[place]: normal axis
Interval: normal interval
QRS Pattern: normal QRS
Ischemia: no ischemia
*Critical Care Note
Total Time (30-74mins, 75-104mins- exclusive of procedures): Not Applicable
Update Note
Update Note:
CT shows possible gastritis and mild distention of the proximal colon. No other acute findings on imaging. Specifically, there is no evidence of colitis. Patient unable to provide stool sample during ED stay. She is stable for discharge.
Offered prescription for Zofran which she already has at home. Supportive care discussed and advised follow-up with PCP. ED return precautions reviewed and she was discharged in stable condition.
ED Attending Note
-
Portions of this chart may have been created with voice recognition software.� Occasional wrong word or��sound alike� substitutions may have occurred due to the inherent limitations of voice recognition software.
Discharge Plan
Departure
Patient Disposition: Home (Routine Discharge)
Date of Disposition: 09/07/25
Time of Disposition: 20:52
Patient with high blood pressure during this ER visit?: Yes
Discharge Problem:
Acute diarrhea, Nausea
Instructions: Diarrhea in teens and adults
Prescriptions:
No Action
cyclobenzaprine 10 mg Tablet
10 mg PO TID PRN (Reason: muscle spasm)
fexofenadine 180 mg Tablet
180 mg PO HS
omeprazole 40 mg Capsule,Delayed Release(Dr/Ec)
40 mg PO DAILY
nortriptyline 25 mg Capsule
25 mg PO BID
famotidine [Pepcid] 20 mg Tablet
20 mg PO BID
buspirone 10 mg Tablet
10 mg PO TID
gabapentin 300 mg Capsule
600 mg PO DAILY
hydroxyzine HCl 25 mg Tablet
25 mg PO HS
propranolol 20 mg Tablet
20 mg PO TID
hydroxyzine HCl 10 mg Tablet
10 mg PO TID PRN (Reason: pruritis)
cholecalciferol (vitamin D3) 25 mcg (1,000 unit) Tablet
50 mcg PO DAILY
lisdexamfetamine 30 mg Capsule
30 mg PO DAILY
fluticasone furoate 27.5 mcg/actuation [place],Suspension
1 spray INTRANASAL DAILY
Referrals:
Grace Laughlin MD [Family Provider]
Activity Restrictions/Additional Instructions:
Drink plenty of fluids and rest. Eat a bland diet (bananas, rice, applesauce, toast) until symptoms improve.
Please follow-up with your family doctor. Return to the ER with any new or worsening symptoms.
Interventions
Interventions:
*Risk Screen - Suicide Last Done: 09/07/25 17:38
*General Assessment Last Done: 09/07/25 17:38
*Neglect/Abuse Screening Last Done: 09/07/25 17:38
*ED- Fall Risk Assessment Last Done: 09/07/25 18:40
*ED COVID-19 Vaccine History Last Done: 09/07/25 18:40
*ED Influenza Vaccine History Last Done: 09/07/25 18:40
*Nursing Disposition Last Done: 09/07/25 21:47
BP-Nwhmxt-Lvcvjlveql Assessment Last Done: 09/07/25 18:36
Discharge Date and Time
Discharge Date/Time: 09/07/25 21:47
Print Language: VENEZUELAN
[2025-09-07] MEDS: NSS 1000 IV (19:26)
[2025-09-07] MEDS: ZOFRAN 4 MG IV (19:26)
[2025-09-07 19:30] LABS: Magnesium 2.0 mg/dl (1.6-2.3)
[2025-09-07 19:55] LABS: Troponin I < 0.012 ng/ml
== END 2025-09-07 21:47 | disposition home or self-care (01) ==
LOC: EMR 17:28
PROVIDERS: Emergency Medicine; Physician Assistant; EMERGENCY PHYSICIAN Emergency Medicine; FAMILY PHYSICIAN Family Medicine
DX: R19.7 Diarrhea, unspecified (principal); R11.0 Nausea; R03.0 Elevated blood-pressure reading, without diagnosis of hypertension; G90.A Postural orthostatic tachycardia syndrome [POTS]; D89.40 Mast cell activation, unspecified; M79.7 Fibromyalgia; F41.9 Anxiety disorder, unspecified; F90.9 Attention-deficit hyperactivity disorder, unspecified type; F43.10 Post-traumatic stress disorder, unspecified; G62.9 Polyneuropathy, unspecified; N80.03 Adenomyosis of the uterus; Z90.711 Acquired absence of uterus with remaining cervical stump
CPT/HCPCS: 99284; 96374; 96361; 74177; 80053; 81003; 81015; 83690; 83735; 84484; 85025; 87086; 93005; Q9967

== ENCOUNTER 2025-10-04 05:47 | Inpatient (IN) | payer OTHER, SELFPAY ==
[2025-10-03 22:27] VITALS: BP 203/126
[2025-10-03 22:48] LABS: Hematocrit 46.1 % (37.0-47.0); Hemoglobin 16.3 g/dL (12.0-16.0); Mean Corp Hgb Conc. 35.4 g/dL (33.0-37.0); Mean Corpuscular Volume 83.1 fL (81.0-99.0); Nucleated Red Blood Cells % 0 %; Platelet Count 266 10^3/uL (130-400); Red Cell Dist. Width 12.5 % (11.5-14.5)
[2025-10-03 23:12] LABS: ALT (SGPT) 24 U/L (0-35); AST (SGOT) 26 U/L (14-36); Albumin 4.5 g/dl (3.5-5.0); Alkaline Phosphatase 72 U/L (38-126); Blood Urea Nitrogen 13 mg/dl (7-17); Calcium 9.5 mg/dl (8.4-10.2); Carbon Dioxide 24 mmol/L (22-30); Chloride 102 mmol/L (98-107); Glucose 145 mg/dl (70-99); Lipase 87 U/L (23-300); Potassium 4.3 mmol/L (3.5-5.1); Sodium 136 mmol/L (135-145); Total Protein 7.5 g/dl (6.3-8.2); eGFR > 60.00
[2025-10-03 23:35] VITALS: BMI 35.1
[2025-10-03 23:44] VITALS: BP 144/105
[2025-10-04] VITALS (14 sets, daily range): BP systolic 81–144; BP diastolic 44–98
--- NOTE | 2025-10-04 00:08 | ED.GENMED ---
History of Present Illness
<Yari Aguilar PA-C - Last Filed: 10/04/25 08:07>
General
Chief Complaint: Dehydration Symptoms
Source: patient
Exam Limitations: none
Time Seen by Provider: 10/04/25 00:07
Nursing documentation reviewed up to this point in time: agreed with
History of Present Illness
History of Present Illness:
Note:
CHIEF COMPLAINT(S)
Diarrhea and abdominal pain.
HISTORY OF PRESENT ILLNESS
The patient is a 45-year-old female with a history of fibro myalgia, POTS, mast cell activation syndrome, PTSD, Zhanna-Danlos syndrome, abdominal issues, presenting with a chief complaint of diarrhea for the past month. She reports that has gotten
acutely worse this past week and she reports that because of this issue, she has not been able to carry out activities of daily living or work. The patient describes the diarrhea as occurring every time she ingests anything, resulting in either
liquid stool or air. She reports accompanying abdominal pain, which she feels is generalized throughout her abdomen, as well as in her back, right side, arm, and hand. She rates the pain as severe and persistent, interfering with her ability to
perform daily activities.
The patient has a significant medical history, including a hysterectomy in September of last year as well as hospital stay a year ago due to colitis, during which she was hospitalized for a week. she had post surgical infection and she was
discharged with a drain, which was supposed to resolve the remaining infection on its own, but she feels she never completely recovered from the infection.
The patient mentions chronic pain and has been recently started on duloxetine for neurogenic pain, which has provided some relief. She also describes feeling constantly fatigued and weak, exacerbated by a history of not feeling right since her
hospitalization.
Additionally, she reports previous evaluations, including a recent computed tomography scan a couple of weeks ago and sigmoid endoscopy, which did not reveal any new abnormalities according to her gastrointestinal specialist. She expresses concern
about her current condition reflecting an unresolved infection.
PAST MEDICAL AND SURIGICAL HISTORY
The patient underwent a colectomy in September of the previous year due to colitis. She also reports a history of elevated white blood cell counts and ongoing abdominal infections.
ADDITIONAL HISTORY OBTAINED FROM SOURCES OTHER THAN THE PATIENT
Information obtained corroborates the patients recollection of events and symptoms, emphasizing the persistent nature of her symptoms and the impact on her daily functioning.
CHRONIC MEDICAL CONDITIONS SIGNIFICANTLY AFFECTING CARE
The patient has a history of colitis and has undergone a colectomy. Her chronic pain is currently managed with duloxetine.
SOCIAL DETERMINANTS AFFECTING HEALTH
The patient reports significant stress related to her partner, indicating a lack of support. She also expresses concerns about not being able to perform daily activities or work, contributing to her distress.
ALLERGIES
The patient reports an allergy to steroids, which induce systemic side effects and are not localized.
MEDICATIONS
Duloxetine for neurogenic pain.
REVIEW OF SYSTEMS
- Gastrointestinal: Persistent diarrhea for one month, abdominal pain.
- Musculoskeletal: Pain in the hand, arm, back, and legs.
- General: Fatigue, weakness, inability to carry out normal activities.
PHYSICAL EXAM
General: Alert, no acute distress.
Skin: Warm, dry.
Head: Normocephalic, atraumatic.
Neck: Supple, trachea midline.
Eye Ears, nose, mouth and throat: Oral mucosa moist.
Cardiovascular: Tachycardia noted. No murmurs. Normal peripheral perfusion, No edema.
Respiratory: Respirations are non-labored.
Gastrointestinal: Diffuse abdominal tenderness, particularly in the lower abdomen and right side, but no palpable abdominal mass
Back: Normal range of motion, Normal alignment.
Musculoskeletal: Normal ROM, normal strength.
Neurological: Alert and oriented to person, place, time, and situation.
Psychiatric: Tearful. Cooperative, appropriate mood & affect.
PROBLEM LIST
Acute:
- Diarrhea
- Abdominal pain
- Elevated white blood cell count
- Dehydration
Chronic:
- History of colitis and colectomy
PLAN
1. Initiate intravenous fluids to address dehydration.
2. Administer pain management with medications as previously effective, considering patient preference for Dilaudid over morphine.
3. Conduct a repeat computed tomography scan to evaluate current abdominal status.
4. Monitor white blood cell count and evaluate the need for hospitalization for further investigation and treatment.
5. Address concerning symptoms and discuss with the infectious disease team for possible evaluation of unresolved infection.
DIFFERENTIAL DIAGNOSIS
The Differential Diagnosis includes, in no particular order and is not limited to:
1. Chronic inflammatory bowel disease exacerbation
2. Infectious colitis
3. Post-surgical complications such as abscess or anastomotic leak
4. Irritable bowel syndrome
5. Bacterial overgrowth
6. Sepsis
7. Medication side effects
8. Gastroenteritis
9. Malabsorption syndrome
10. Functional bowel disorder
Disposition:
SUMMARY OF ENCOUNTER
The patient is a 45-year-old female presenting to the emergency department with ongoing abdominal pain, diarrhea, and weakness. This is her third visit to an emergency department within a few weeks. She was found to be dehydrated and exhibits
symptoms that require further evaluation and management. A CT scan indicates liquid stool in the proximal colon, with no evidence of obstruction, abscess, or free air.
DISPOSITION
Admit
ASSESSMENT
Chronic abdominal issues likely due to previous history of colitis , complicated by current dehydration and persistent diarrhea. Potential post-surgical complications need evaluation.
EMERGENCY TREATMENTS ADMINISTERED
Intravenous fluids to address dehydration.
MANAGEMENT OF THE PATIENTS CARE WAS DISCUSSED WITH
Case discussed with the ED attending.
PLAN
The patient requires hospital admission for further workup and treatment of dehydration and underlying abdominal symptoms.
INDEPENDENT REVIEW OF LABS AND INTERPRETATION OF TESTS
My independent review of the CT scan indicates liquid stool in the proximal colon; no evidence of obstruction, abscess, or free air.
MEDICAL DECISION MAKING
- Complexity of Data Reviewed: Chronic conditions affecting care, including the patient�s history of colitis and colectomy. Differential Diagnosis: Chronic inflammatory bowel disease exacerbation, Infectious colitis, Post-surgical complications such
as abscess or anastomotic leak, Irritable bowel syndrome, Bacterial overgrowth, Sepsis, Medication side effects, Gastroenteritis, Malabsorption syndrome, Functional bowel disorder.
- Data:
Category [address] scan independently reviewed with findings of liquid stool presence and no signs of obstruction or other acute pathology.
Category 3
Case discussed with ED attending for management planning and decision for hospital admission.
DIAGNOSIS
1. Abdominal pain, unspecified (R10.9)
2. Diarrhea, unspecified (R19.7)
3. Dehydration (E86.0)
Past History
<Yari Aguilar PA-C - Last Filed: 10/04/25 08:07>
Past History
ED Past Medical History: Psychiatric (Anxiety, ADHD, PTSD), Other (Back pain, neuropathy, constipation) and Other (Zhanna-Danlos, mast cell activation, adenomyosis)
ED Past Surgical History: Gynecological (Partial hysterectomy, endometrial ablation, abscess)
Social History
Tobacco: Non-smoker
Alcohol: None
Drug: None
Personal:
Living: with family
Review of Systems
<Yari Aguilar PA-C - Last Filed: 10/04/25 08:07>
Review of Systems
All Other Systems: ROS reviewed and negative except as documented in HPI and ROS
Phy Exam
<Yari Aguilar PA-C - Last Filed: 10/04/25 08:07>
Physical Exam
Physical Exam:
see hpi
Course
<Yari Aguilar PA-C - Last Filed: 10/04/25 08:07>
Orders/Labs/Results
Orders:
Orders
10/03/25 22:41
Complete Blood Count/With Diff Urgent
Comprehensive Metabolic Panel Urgent
HCG, Serum Qualitative Screen Urgent
Comment: ADDED
Lipase Urgent
10/04/25 00:44
Stool Culture Urgent
BEREKET Source: Feces/Stool
Specimen Description:
0.9% Sodium Chloride 1000 ml [Nss] 1,000 ml IV BOLUS
Famotidine [Pepcid] 20 mg IV NOW STA
HYDROmorphone [Dilaudid] 0.5 mg IV NOW STA
Ondansetron Injectable [Zofran] 4 mg IV NOW STA
Pantoprazole [Protonix IV] 40 mg IV NOW STA
10/04/25 00:45
CT Abd/pelvis W Iv Cont Urgent
Comment:
Reason For Exam: b/l lower abdominal pain
10/04/25 00:46
Test Result ONCE
10/04/25 02:04
Urinalysis Reflex To Culture Urgent
Date Specimen was Collected: 10/04/25
Time Specimen was Collected: 01:57
10/04/25 02:07
Lactic Acid Urgent
10/04/25 04:58
HYDROmorphone [Dilaudid] 0.5 mg IV NOW STA
10/04/25 05:37
Admit/Transfer Patient As Directed
Co-Sign Provider:
Level of Care: Inpatient admission
Assign to:: Medical/Surgical
Physician / Group: Hesham
Diagnosis: Colitis / Enteritis
Reason for Hospitalization: Colitis / Enteritis
Expected length of stay greater than two midnights?: Yes
ELOS- Estimated Length of Stay in days: 3
I certify the patient meets the requirements for IP care: Yes
PRN Pain Medication Management As Directed
May give lesser potent ordered pain med per pt: Yes
preference::
Protocol:: Medication orders for pain may be administered in a
manner that supports deferring to patient preference
when the pt is:
- Requesting an ordered lesser potent pain medication.
Least to most potent pain medications are defined
as: acetaminophen < NSAID < tramadol < opioids
(morphine, oxycodone, hydromorphone).
- Requesting a lesser dose of the same medication IF
ORDERED.
- Requesting a less intrusive route of administration
if both routes are prescribed by the provider (PO <
IV).
10/04/25 05:39
Code Status As Directed
Resuscitation Status: Full Code
10/04/25 Breakfast
BRAT
At Your Request: Full Participation
Lactated Ringers [Lr] 1,000 ml IV 125 mls/hr
Piperacillin/Tazo 3.375 Gram [Zosyn] 3.375 gram in 50 ml IV Q6H
10/04/25 06:03
Basic Metabolic Panel IN AM
Complete Blood Count/No Diff IN AM
10/04/25 07:17
Acetaminophen [Tylenol] 650 mg PO Q4HPRN PRN
HYDROmorphone [Dilaudid] 0.5 mg IV Q4HPRN PRN
HydrOXYZINE [Atarax] 10 mg PO TID PRN pruritis
Ondansetron Injectable [Zofran] 4 mg IV Q6HPRN PRN
10/04/25 07:17
Consult Notification Routine
Specialty to Notify: Gastroenterology
Date consulting provider notified: 10/04/25
Time consulting provider notified: 07:31
Notified:: Provider
Comment: TT Dr Jacob
GASTROINTESTINAL CONSULT Routine
Consulting Provider: Aaron Wolfe
Was physician already notified: No
Reason for consult: Colitis / Enteritis
Calprotectin, Fecal [S] Routine
TSH Reflex To Free T4 Routine
Activity As Directed
Activity Level: Ambulate
I/O [Intake/ Output] As Directed
Frequency: Per unit guidelines
Pneumatic Compression Sleeves As Directed
Type: Knee high
Vital Signs As Directed
Frequency: Per unit guidelines
Oxygen Therapy [O2 Therapy] [RESP] Routine
Titrate/Wean O2 to maintain O2 sat greater than (%): 94
DX Deep Vein Thrombosis Video Routine
10/04/25 08:00
Buspirone [Buspar] 10 mg PO TID
Famotidine [Pepcid] 20 mg PO BID
Gabapentin [Neurontin] 600 mg PO DAILY
Propranolol [Inderal] 20 mg PO TID
lisdexamfetamine 30 mg PO DAILY
10/04/25 22:00
HydrOXYZINE [Atarax] 25 mg PO HS
Abnormal Lab Results
10/03/25
22:41
WBC 20.1 H 10^3/uL
(4.8-10.8)
RBC 5.55 H 10^6/uL
(4.20-5.40)
Hgb 16.3 H g/dL
(12.0-16.0)
Abs Immat Gran (auto) 0.1 H 10^3/uL
(0-0.05)
Absolute Neuts (auto) 15.7 H 10^3/uL
(1.4-6.5)
Absolute Monos (auto) 1.0 H 10^3/uL
(0.1-0.6)
Immature Gran % 0.6 H %
(0-0.5)
Neutrophils % 78.0 H %
(42.2-75.2)
Lymphocytes % 15.8 L %
(20.5-51.1)
Glucose 145 H mg/dl
(70-99)
10/03/25 22:41
10/03/25 22:41
Vital Signs
Initial and Last Documented VS:
Initial Vital Signs
Temp Pulse Resp BP Pulse Ox
97.4 F 137 19 203/126 99
10/03/25 22:27 10/03/25 22:27 10/03/25 22:27 10/03/25 22:27 10/03/25 22:27
Last Documented Vital Signs
Temp Pulse Resp BP Pulse Ox
97.5 F 112 16 125/78 98
10/04/25 07:57 10/04/25 05:33 10/04/25 07:57 10/04/25 07:42 10/04/25 07:57
<Shashi Alan, DO - Last Filed: 10/04/25 05:33>
Orders/Labs/Results
Orders:
Orders
10/03/25 22:41
Complete Blood Count/With Diff Urgent
Comprehensive Metabolic Panel Urgent
HCG, Serum Qualitative Screen Urgent
Comment: ADDED
Lipase Urgent
10/04/25 00:44
Stool Culture Urgent
BEREKET Source: Feces/Stool
Specimen Description:
0.9% Sodium Chloride 1000 ml [Nss] 1,000 ml IV BOLUS
Famotidine [Pepcid] 20 mg IV NOW STA
HYDROmorphone [Dilaudid] 0.5 mg IV NOW STA
Ondansetron Injectable [Zofran] 4 mg IV NOW STA
Pantoprazole [Protonix IV] 40 mg IV NOW STA
10/04/25 00:45
CT Abd/pelvis W Iv Cont Urgent
Comment:
Reason For Exam: b/l lower abdominal pain
10/04/25 00:46
Test Result ONCE
10/04/25 02:04
Urinalysis Reflex To Culture Urgent
Date Specimen was Collected: 10/04/25
Time Specimen was Collected: 01:57
10/04/25 02:07
Lactic Acid Urgent
10/04/25 04:58
HYDROmorphone [Dilaudid] 0.5 mg IV NOW STA
10/04/25 05:37
Admit/Transfer Patient As Directed
Co-Sign Provider:
Level of Care: Inpatient admission
Assign to:: Medical/Surgical
Physician / Group: Hesham
Diagnosis: Colitis / Enteritis
Reason for Hospitalization: Colitis / Enteritis
Expected length of stay greater than two midnights?: Yes
ELOS- Estimated Length of Stay in days: 3
I certify the patient meets the requirements for IP care: Yes
PRN Pain Medication Management As Directed
May give lesser potent ordered pain med per pt: Yes
preference::
Protocol:: Medication orders for pain may be administered in a
manner that supports deferring to patient preference
when the pt is:
- Requesting an ordered lesser potent pain medication.
Least to most potent pain medications are defined
as: acetaminophen < NSAID < tramadol < opioids
(morphine, oxycodone, hydromorphone).
- Requesting a lesser dose of the same medication IF
ORDERED.
- Requesting a less intrusive route of administration
if both routes are prescribed by the provider (PO <
IV).
10/04/25 05:39
Code Status As Directed
Resuscitation Status: Full Code
10/04/25 Breakfast
BRAT
At Your Request: Full Participation
Lactated Ringers [Lr] 1,000 ml IV 125 mls/hr
Piperacillin/Tazo 3.375 Gram [Zosyn] 3.375 gram in 50 ml IV Q6H
10/04/25 06:03
Basic Metabolic Panel IN AM
Complete Blood Count/No Diff IN AM
10/04/25 07:17
Acetaminophen [Tylenol] 650 mg PO Q4HPRN PRN
HYDROmorphone [Dilaudid] 0.5 mg IV Q4HPRN PRN
HydrOXYZINE [Atarax] 10 mg PO TID PRN pruritis
Ondansetron Injectable [Zofran] 4 mg IV Q6HPRN PRN
10/04/25 07:17
Consult Notification Routine
Specialty to Notify: Gastroenterology
Date consulting provider notified: 10/04/25
Time consulting provider notified: 07:31
Notified:: Provider
Comment: TT Dr Jacob
GASTROINTESTINAL CONSULT Routine
Consulting Provider: Aaron Wolfe
Was physician already notified: No
Reason for consult: Colitis / Enteritis
Calprotectin, Fecal [S] Routine
TSH Reflex To Free T4 Routine
Activity As Directed
Activity Level: Ambulate
I/O [Intake/ Output] As Directed
Frequency: Per unit guidelines
Pneumatic Compression Sleeves As Directed
Type: Knee high
Vital Signs As Directed
Frequency: Per unit guidelines
Oxygen Therapy [O2 Therapy] [RESP] Routine
Titrate/Wean O2 to maintain O2 sat greater than (%): 94
DX Deep Vein Thrombosis Video Routine
10/04/25 08:00
Buspirone [Buspar] 10 mg PO TID
Famotidine [Pepcid] 20 mg PO BID
Gabapentin [Neurontin] 600 mg PO DAILY
Propranolol [Inderal] 20 mg PO TID
lisdexamfetamine 30 mg PO DAILY
10/04/25 22:00
HydrOXYZINE [Atarax] 25 mg PO HS
Abnormal Lab Results
10/03/25
22:41
WBC 20.1 H 10^3/uL
(4.8-10.8)
RBC 5.55 H 10^6/uL
(4.20-5.40)
Hgb 16.3 H g/dL
(12.0-16.0)
Abs Immat Gran (auto) 0.1 H 10^3/uL
(0-0.05)
Absolute Neuts (auto) 15.7 H 10^3/uL
(1.4-6.5)
Absolute Monos (auto) 1.0 H 10^3/uL
(0.1-0.6)
Immature Gran % 0.6 H %
(0-0.5)
Neutrophils % 78.0 H %
(42.2-75.2)
Lymphocytes % 15.8 L %
(20.5-51.1)
Glucose 145 H mg/dl
(70-99)
10/03/25 22:41
10/03/25 22:41
Vital Signs
Initial and Last Documented VS:
Initial Vital Signs
Temp Pulse Resp BP Pulse Ox
97.4 F 137 19 203/126 99
10/03/25 22:27 10/03/25 22:27 10/03/25 22:27 10/03/25 22:27 10/03/25 22:27
Last Documented Vital Signs
Temp Pulse Resp BP Pulse Ox
97.5 F 112 16 125/78 98
10/04/25 07:57 10/04/25 05:33 10/04/25 07:57 10/04/25 07:42 10/04/25 07:57
<Yari Aguilar PA-C - Last Filed: 10/04/25 08:07>
*Pulse Oximetry
SaO2: 99
Nasal Cannula flow liters per minute: 98
Oxygen Mode of Delivery: Room air
Patient hypoxic: no
*Critical Care Note
Total Time (30-74mins, 75-104mins- exclusive of procedures): Not Applicable
ED Attending Note
<Yari Aguilar PA-C - Last Filed: 10/04/25 08:07>
-
Portions of this chart may have been created with voice recognition software.� Occasional wrong word or��sound alike� substitutions may have occurred due to the inherent limitations of voice recognition software.
<Shashi Alan DO - Last Filed: 10/04/25 05:33>
ED Attending Note
Patient seen and examined by attending physician: Yes
I performed the substantive portion of visit, reviewed & personally made and approve the management plan that is documented in note by myself or DAYANARA.: Yes
ED Attending Note:
45-year-old female with acute on chronic abdominal pain. Multiple ER visits. Patient states that her abdominal pain has worsened. Initially started almost a year ago after a hysterectomy. Patient seen in conjunction with the PA. I reviewed and
agree with her history and treatment plan. Appointment and physical exam patient awake alert and oriented x 3. Moderate acute distress though she did receive medication. Mentating appropriately. Patient to be admitted to the hospitalist service.
Discharge Plan
Departure
Patient Disposition: Admit
Date of Disposition: 10/04/25
Time of Disposition: 05:02
Admit to: Med/Surg
Presentation/result/management discussed w/ accepting MD/DO: Hospitalist
Patient with high blood pressure during this ER visit?: Yes
Condition: Fair
Discharge Problem:
Intractable abdominal pain, Diarrhea
Interventions
Interventions:
*Risk Screen - Suicide Last Done: 10/03/25 22:31
*General Assessment Last Done: 10/03/25 22:31
*Neglect/Abuse Screening Last Done: 10/03/25 22:31
*ED COVID-19 Vaccine History Last Done: 10/03/25 22:31
*ED Influenza Vaccine History Last Done: 10/03/25 22:31
[facility] Risk Assessment Tool Last Done: 10/04/25 01:49
ED- Cardiac Assessment Last Done: 10/03/25 23:45
ED- Neurological Assessment Last Done: 10/03/25 23:45
ED- Pulmonary Assessment Last Done: 10/03/25 23:46
[2025-10-04] MEDS: DILAUDID 0.5 MG IV ×4 (00:59→17:54)
[2025-10-04] MEDS: PEPCID 20 MG IV (00:59)
[2025-10-04] MEDS: NSS 1000 IV (00:59)
[2025-10-04] MEDS: PROTONIX IV 40 MG IV (01:00)
[2025-10-04] MEDS: ZOFRAN 4 MG IV ×2 (01:00→17:54)
[2025-10-04 01:38] LABS: HCG, Serum Qualitative Screen Negative
[2025-10-04 02:36] LABS: Urine Character Clear (Clear)
--- NOTE | 2025-10-04 05:41 | HPS.HSE ---
Family Physician
-
Family Physician: Nikhil Acosta MD
Chief Complaint
-
Abd Pain, Diarrhea
History of Present Illness
Patient is a 45y F with PMH significant for POTS, Zhanna Danlos, Fibromylagia and MAST cell activation syndrome who presents to ED complaining of abdominal pain and diarrhea for the past month. Patient reports watery brown stools that occur with
any PO intake. She complains of lower abdominal pain / cramping. No N/V. No fevers / chills. No urinary symptoms. Patient has now been seen in the ED here twice and the ED at [facility] once in the past 3 weeks for these symptoms.
She had a similar presentation in December 2024 which resolved after a short course of antibiotics.
Patient states that she had a hysterectomy at [facility] in 09/2024 and she has been having issues since. She had a post-op abscess requiring drain after that surgery.
Patient is tearful and distressed in the ED. History is difficult at times due to patient inability / unwillingness to answer questions.
Medical History
Past Medical History
Past Medical History: Reports Other
Additional Past Medical History:
POTS
Fibromyalgia
Mast Cell Activation Syndrome
Chronic Pain Syndrome
Zhanna Danlos
GERD / Esophagitis
Anxiety / Depression
Past Surgical History: Reports Other
Additional Past Surgical History:
Hysterectomy (09/2024)
Facial Reconstruction
Endometrial Ablation
Social History
Tobacco: Smoker (Current every day smoker. 1/2 ppd for total of 10 pack years.)
Alcohol: Occasional
Drug: None
Personal:
Living: With Family
Family History
Family History: Not pertinent
Allergies / Home Medications
Allergies reflects when Allergies were last updated in [employer].
Home Medications with original date entered in [employer]
Allergy/Medication List:
Allergies
Allergy/AdvReac Type Severity Reaction Status Date / Time
Cephalosporins Allergy Unknown Verified 10/03/25 22:32
Corticosteroids Allergy Unknown Verified 10/03/25 22:32
(Glucocorticoids)
Latex, Natural Rubber Allergy Unknown Verified 10/03/25 22:32
Home Medications
buspirone 10 mg tablet 10 mg PO TID Mental Health/Anxiety 12/23/24
cholecalciferol (vitamin D3) 25 mcg (1,000 unit) tablet 50 mcg PO DAILY Supplement 12/23/24
cyclobenzaprine 10 mg tablet 10 mg PO TID PRN muscle spasm 12/23/24
famotidine 20 mg tablet (Pepcid) 20 mg PO BID Gastrointestinal Issue 12/23/24
fexofenadine 180 mg tablet 180 mg PO HS Allergies 12/23/24
fluticasone furoate 27.5 mcg/actuation nasal spray,suspension 1 spray intranasal DAILY Congestion 12/23/24
gabapentin 300 mg capsule 600 mg PO DAILY Pain 12/23/24
hydroxyzine HCl 10 mg tablet 10 mg PO TID PRN pruritis 12/23/24
hydroxyzine HCl 25 mg tablet 25 mg PO HS itch 12/23/24
lisdexamfetamine 30 mg capsule 30 mg PO DAILY Mental Health/Anxiety 12/23/24
omeprazole 40 mg capsule,delayed release 40 mg PO DAILY gerd 12/23/24
propranolol 20 mg tablet 20 mg PO TID Blood Pressure 12/23/24
Review of Systems
-
History Source: Patient
A 12 point ROS was completed and negative except as noted: Yes
Constitutional: Reports Fatigue; Denies Fever or Chills
Respiratory: Denies Cough or Trouble Breathing
Cardiac: Denies Chest Pain or Palpitations
Abdomen/GI: Reports Abdominal Pain and Diarrhea; Denies Nausea, Vomiting, Bloody Stools or Black Stools
: Denies Dysuria or Frequency
Musculoskeletal: Denies Joint Pain or Edema
Neurological: Denies Dizzy or Headache
Psych: Reports Depression and Anxiety
Physical Exam
Vital Signs
Vital Signs
Temp Pulse Resp BP Pulse Ox
97.4 F 94 18 117/80 96
10/03/25 22:27 10/04/25 04:00 10/04/25 04:00 10/04/25 04:00 10/04/25 03:45
Physical Exam
General: Other (45y F tearful and distressed.)
HEENT: Moist mucous membranes
Respiratory: Clear; No Wheezes, Rales or Rhonchi
Cardiac: S1/S2 and Regular Rhythm; No Murmur
GI: Other (Mild lower abdominal tenderness without rebound / guarding. Pos BS.)
Musculoskeletal: No Clubbing, No Cyanosis and No Edema
Neuro: AO x 3
Laboratory Results
-
10/03/25 22:41
10/03/25 22:41
Laboratory Results
Lactic Acid 1.3 mmol/L (0.7-2.0) 10/04/25 02:07
Total Bilirubin 0.3 mg/dl (0.2-1.3) 10/03/25 22:41
AST 26 U/L (14-36) 10/03/25 22:41
ALT 24 U/L (0-35) 10/03/25 22:41
Alkaline Phosphatase 72 U/L (38-126) 10/03/25 22:41
Lipase 87 U/L (23-300) 10/03/25 22:41
Impression/Plan
-
A/P: Patient is a 45y F with PMH significant for chronic pain, fibromyalgia and POTS who presents to ED complaining of crampy abdominal pain and diarrhea.
Colitis / Enteritis
- Admit for further evaluation and treatment.
- Liquid stool seen in colon - but CT scan is otherwise unremarkable.
- Leukocytosis (20.2) with L shift.
- Recent stool studies were negative per patient - will repeat.
- IV Zosyn, IVFs, supportive care.
- GI evaluation for additional recommendations given recurrent symptoms.
- BRAT diet as tolerated.
- Follow for clinical changes.
POTS
Fibromyalgia
Mast Cell Activation Syndrome
Chronic Pain Syndrome
Anxiety / Depression
- Patient is tearful and distressed today.
- Likely due to recent health issues / frustration - but patient also notes that she has not taken lisdexamfetamine or buspar in several days as she felt they might be contributing to her GI complaints.
- Continue / resume usual outpatient medications regimen without changes.
- Follow for improvement in mood.
- Follow-up with usual outpatient providers after discharge.
DVT Prophylaxis: SCDs
Code Status: Full
[2025-10-04] MEDS: LR 1000 IV ×2 (06:11→19:20)
[2025-10-04] MEDS: ZOSYN 50 IV ×4 (06:12→23:19)
[2025-10-04 06:15] LABS: Hematocrit 42.7 % (37.0-47.0); Hemoglobin 15.3 g/dL (12.0-16.0); Mean Corp Hgb Conc. 35.8 g/dL (33.0-37.0); Mean Corpuscular Volume 82.3 fL (81.0-99.0); Platelet Count 251 10^3/uL (130-400); Red Cell Dist. Width 12.6 % (11.5-14.5)
[2025-10-04 06:56] LABS: Blood Urea Nitrogen 11 mg/dl (7-17); Calcium 8.9 mg/dl (8.4-10.2); Carbon Dioxide 22 mmol/L (22-30); Chloride 105 mmol/L (98-107); Estimated Creatinine Clearance 89 ml/min; Glucose 94 mg/dl (70-99); Sodium 135 mmol/L (135-145); eGFR > 60.00
[2025-10-04] MEDS: NEURONTIN 600 MG PO (08:48)
[2025-10-04] MEDS: BUSPAR 10 MG PO ×3 (08:48→21:37)
[2025-10-04] MEDS: INDERAL 20 MG PO (08:50)
[2025-10-04] MEDS: PEPCID 20 MG PO ×2 (08:50→21:35)
--- NOTE | 2025-10-04 08:51 | W.PN.HOSP.TC ---
Today's Communication/Plan
-
GI consult
Assessment / Plan
Assessment / Plan
Physical Exam
General: Other (45y F tearful and distressed.)
HEENT: Moist mucous membranes
Respiratory: Clear; No Wheezes, Rales or Rhonchi
Cardiac: S1/S2 and Regular Rhythm; No Murmur
GI: Other (Mild lower abdominal tenderness without rebound / guarding. Pos BS.)
Musculoskeletal: No Clubbing, No Cyanosis and No Edema
Neuro: AO x 3, no neuro deficits
A/P:
Colitis / Enteritis
Admit for further evaluation and treatment.
Liquid stool seen in colon - but CT scan is otherwise unremarkable.
Leukocytosis (20.2) with L shift. Remains at 19 this morning.
Recent stool studies were negative per patient - will repeat.
IV Zosyn, IVFs, supportive care.
GI evaluation for additional recommendations given recurrent symptoms.
BRAT diet as tolerated.
Follow for clinical changes.
POTS
Fibromyalgia
Mast Cell Activation Syndrome
Chronic Pain Syndrome
Anxiety / Depression
Patient is tearful and distressed today.
Likely due to recent health issues / frustration - but patient also notes that she has not taken lisdexamfetamine or buspar in several days as she felt they might be contributing to her GI complaints.
Continue / resume usual outpatient medications regimen without changes.
Follow for improvement in mood.
Follow-up with usual outpatient providers after discharge.
DVT Prophylaxis: SCDs
Code Status: Full
Anticipated Discharge: 24 - 48 hours
Subjective/Interval History
-
Date of Service: October 04, 2025
Patient c/o abd discomfort, not able to tolerate much food intake. Afebrile
Objective Data
-
Labs:
Laboratory Results
10/03/25 10/04/25
22:41 06:03
WBC 20.1 H 19.1 H
Hgb 16.3 H 15.3
Hct 46.1 42.7
Plt Count 266 251
Sodium 136 135
Potassium 4.3
Chloride 102 105
Carbon Dioxide 24 22
BUN 13 11
Creatinine 0.9 0.8
Glucose 145 H 94
Calcium 9.5 8.9
Total Bilirubin 0.3 Cancelled
AST 26 Cancelled
ALT 24 Cancelled
Alkaline Phosphatase 72 Cancelled
Vital Signs:
Vital Signs
Temp Pulse Resp BP Pulse Ox
97.5 F 112 16 125/78 98
10/04/25 07:57 10/04/25 05:33 10/04/25 07:57 10/04/25 07:42 10/04/25 07:57
--- NOTE | 2025-10-04 10:40 | EDCM ---
Reviewed chart and met with pt bedside in ED. [address] [place] [address]. Lives with her mother, her 3 children 12,14,16 and her sister and her children. Pt states her mother cares for her children. Pt states she has multiple medical problems
including fibromyalgia and Zhanna Danlos Syndrome which make it difficult for her to care for them.
Home has first floor half bath, full flight to second floor bedrooms. Pt states she stay with her boyfriend frequently because there is not enough room in the house. She states boyfriend is not very supportive of her.
Independent in ADLs, personal care and ambulation. Does use a RW, also has cane. States she frequently feels unsteady.
She has applied for disability but has not heard back yet.
Confirms RX coverage.
No hx VN or SNF.
PCP: Nikhil Acosta
Pharmacy: [address]
CM will continue to follow for all discharge planning needs.
--- NOTE | 2025-10-04 14:13 | CON.GI ---
Addendum entered and electronically signed by Aaron Wolfe MD 10/04/25 18:47:
The patient was seen and examined by me independently in collaboration with the nurse practitioner.
Past medical history/social history/medications/allergies/family history reviewed.
Lab data and imaging data reviewed.
45-year-old female past medical history of POTS, Ehlros Danos, fibromyalgia, questionable mast cell activation syndrome when I asked the patient she is not sure if she was definitively diagnosed with this, presenting with diarrhea. Reviewing her
notes, she was admitted in October with diarrhea and was seen at that time by Dr. Green this was felt to be and she had bloody diarrhea and had an elevated fecal calprotectin at 695. this was felt to be infectious and patient was discharged.
Patient is a poor historian and cannot define if she had diarrhea between December and September although she was readmitted again in September at an outside hospital with diarrhea. She also had an outpatient flexible sigmoidoscopy at [facility] with her
doctor Dr. Merry Bhatti because she was unable to tolerate the bowel prep due to her POTS. Dr. Bhatti also recommended a anorectal manometry as it seems she also suffers from constipation in addition to diarrhea.
She had a CT scan done which showed fluid consistent with diarrhea but no significant colitis or intestinal obstruction.
Most likely given her POTS and Ehrlos Danlos, I suspect she has irritable bowel syndrome especially given the fact that she has both diarrhea and constipation. Mast cell activation syndrome (if she does have it) can lead to diarrhea as well.
However, I do think she should have a full colonoscopy to ensure no other etiology. Patient is willing to proceed with the bowel prep in the hospital. Plan for colonoscopy tomorrow. We discussed colorectal cancer screening modalities including
colonoscopy, flexible sigmoidoscopy, imaging, fecal occult blood test and other stool based tests. We discussed the risks of colonoscopy including bleeding, infection, missed lesion, incomplete procedure, perforation and cardiopulmonary
complications from anesthesia. Patient agreed to the procedure.
With the questionable MCAS will check serum tryptase.
She does elicit some nausea and reflux and states her reflux is overall well-controlled. Nausea comes in waves. She had an endoscopy done but she is not sure when. At this time, her symptoms seem to be more related to her diarrhea so we will hold
off on workup for upper GI issues at this time.
She also has a persistent leukocytosis unclear etiology. Primary team has her on Zosyn.
Original Note:
Consultation
-
Date/Time Consultation Requested: 10/04/25 0715
Date/Time Consultation Performed: 10/04/25 1415
Requesting Provider: Saran Dahl DO
Performing Provider: BOSTON Quintero, Lilia Wolfe MD
Reason for Consultation: diarrhea, abdominal pain
Medical History
Chief Complaint / HPI
Chief Complaint: diarrhea
History of Present Illness:
Pt is a 45yo with hx POTs, oz danlos, fibromyalgia, MAST cell activation syndrome, chronic pain, GERD, anxiety/depression, prior hysterectomy 2023 with post- op infection requiring drainage at [facility] with admission for diarrhea. In review
with patient she has not felt well since prior infection with hysterectomy. She began with diarrhea around beginning of September and was in ER 09/07 with mild distention of colon on CT and possible gastritis. She was offered supportive care and
discharge. She admits she went to [facility] and was treated around 09/10 with Augmentin for 4 days but they were unclear of source. She continued with diarrhea and describes it as up to 10 stool daily with variable amounts. She did have
stool studies around 09/20 and reports they were all negative. She also admit to multiple medication changes unclear as given medication from several providers but admits to using valium every several days and Cymbalta starting at 20mg in July
then 30mg then wean to off. In addition to diarrhea she admits to nausea without vomiting, gagging, chills, chronic GERD, lower abdominal pain, and denies blood or black in stools. Ct on admission as noted. Hx EGD in past at [facility] and attempted
colonoscopy but was unable to prep with POTS and passing out and then had flex sig but unsure of results. On admission WBC 20.100, hbg 16.3, normal platelets, stable chemistry with glucose 145. Prior reviewed fecal herman 695 from 12/2024.
09/07/25- CT Abd/pelvis W Iv Cont
1. Mild distention of the proximal colon.
2. 1.4 cm cyst in the right ovary.
3. Mild wall thickening throughout the stomach (possibly gastritis).
4. Previous hysterectomy.
5. Grade 1 anterolisthesis of L5 on S1 secondary to bilateral L5 pars interarticularis spondylolysis.
10/04/25 CT Abd/pelvis W Iv Cont
1. Fluid within the proximal colon, consistent with diarrhea. No evidence of significant colitis or intestinal obstruction.
2. Right adnexal corpus luteal cyst. Prior hysterectomy.
3. Bilateral pars defects at L5, associated with grade 1 anterolisthesis of L5 on S1.
Past Medical History
Past Medical History: GERD, Psychiatric (anxiety/depression) and Other (POTs, oz danlos, fibromyalgia, MAST cell activation syndrome)
Past Surgical History: Gynecological (hyperection )
Social History
Tobacco: Smoker
Alcohol: None
Drug: None
Living: Other (lives with mother and boyfriend )
Family History
Family History: Other (denies family hx GI issues )
Allergies / Home Medications
Allergy/AdvReac Type Severity Reaction Status Date / Time
Cephalosporins Allergy Unknown Verified 10/03/25 22:32
Corticosteroids Allergy Unknown Verified 10/03/25 22:32
(Glucocorticoids)
Latex, Natural Rubber Allergy Unknown Verified 10/03/25 22:32
�Medication �Instructions �Recorded
buspirone 10 mg tablet 10 mg PO TID Mental Health/Anxiety 12/23/24
cholecalciferol (vitamin D3) 25 50 mcg PO DAILY Supplement 12/23/24
mcg (1,000 unit) tablet
cyclobenzaprine 10 mg tablet 10 mg PO TID PRN muscle spasm 12/23/24
famotidine 20 mg tablet (Pepcid) 20 mg PO BID Gastrointestinal Issue 12/23/24
fexofenadine 180 mg tablet 180 mg PO HS Allergies 12/23/24
fluticasone furoate 27.5 1 spray intranasal DAILY Congestion 12/23/24
mcg/actuation nasal
spray,suspension
gabapentin 300 mg capsule 800 mg PO DAILY Pain 12/23/24
hydroxyzine HCl 10 mg tablet 10 mg PO TID PRN pruritis 12/23/24
hydroxyzine HCl 25 mg tablet 25 mg PO HS itch 12/23/24
lisdexamfetamine 30 mg capsule 30 mg PO DAILY Mental 12/23/24
Health/Anxiety
omeprazole 40 mg capsule,delayed 40 mg PO DAILY gerd 12/23/24
release
propranolol 20 mg tablet 20 mg PO TID Blood Pressure 12/23/24
duloxetine 30 mg capsule,delayed 30 mg PO HS 10/04/25
release
trazodone 50 mg tablet 50 mg PO HS 10/04/25
Review of Systems
-
History Source: Patient
Constitutional: Reports Weight Loss (few lbs )
EENT: Reports No Symptoms
Respiratory: Reports No Symptoms
Abdomen/GI: Reports Abdominal Pain, Nausea, Diarrhea and Other (gagging )
: Reports No Symptoms
Musculoskeletal: Reports Joint Pain
Skin: Reports No Symptoms
Neurological: Reports Weakness
Endocrine: Reports No Symptoms
Hematologic/Lymphatic: Reports No Symptoms
Vital Signs
Temp Pulse Resp BP Pulse Ox
98.1 F 84 16 95/62 98
10/04/25 11:51 10/04/25 08:50 10/04/25 07:57 10/04/25 11:51 10/04/25 07:57
Physical Exam
Exam
General: Well Developed, Well Nourished and No Apparent Distress
HEENT: Normocephalic and Anicteric
Respiratory: Clear
Cardiac: Regular Rhythm
GI: Soft, Non Distended and Tender (lower abdomen )
Musculoskeletal: No Clubbing and No Cyanosis
Skin: Warm and Dry
Neuro: Awake, Alert and AO x 3
Psych: Calm (but then some escalation during eval with unclear etiology of illness )
Results
WBC 19.1 10^3/uL (4.8-10.8) H 10/04/25 06:03
Hgb 15.3 g/dL (12.0-16.0) 10/04/25 06:03
Hct 42.7 % (37.0-47.0) 10/04/25 06:03
MCV 82.3 fL (81.0-99.0) 10/04/25 06:03
Plt Count 251 10^3/uL (130-400) 10/04/25 06:03
Absolute Neuts (auto) 15.7 10^3/uL (1.4-6.5) H 10/03/25 22:41
Sodium 135 mmol/L (135-145) 10/04/25 06:03
Potassium mmol/L (3.5-5.1) 10/04/25 06:03
Chloride 105 mmol/L (98-107) 10/04/25 06:03
Carbon Dioxide 22 mmol/L (22-30) 10/04/25 06:03
BUN 11 mg/dl (7-17) 10/04/25 06:03
Creatinine 0.8 mg/dL (0.6-1.0) 10/04/25 06:03
Calcium 8.9 mg/dl (8.4-10.2) 10/04/25 06:03
Total Bilirubin Cancelled 10/04/25 06:03
AST Cancelled 10/04/25 06:03
ALT Cancelled 10/04/25 06:03
Alkaline Phosphatase Cancelled 10/04/25 06:03
Lipase 87 U/L (23-300) 10/03/25 22:41
Diagnostic Image Results:
09/07/25- CT Abd/pelvis W Iv Cont
1. Mild distention of the proximal colon.
2. 1.4 cm cyst in the right ovary.
3. Mild wall thickening throughout the stomach (possibly gastritis).
4. Previous hysterectomy.
5. Grade 1 anterolisthesis of L5 on S1 secondary to bilateral L5 pars interarticularis spondylolysis.
10/04/25 CT Abd/pelvis W Iv Cont
1. Fluid within the proximal colon, consistent with diarrhea. No evidence of significant colitis or intestinal obstruction.
2. Right adnexal corpus luteal cyst. Prior hysterectomy.
3. Bilateral pars defects at L5, associated with grade 1 anterolisthesis of L5 on S1.
Prior GI Procedures:
EGD: taoism unsure of findings
Colonoscopy: [facility] flex sig unsure of findings
Assessment / Plan
-
Pt is a 45yo with hx POTs, oz danlos, fibromyalgia, MAST cell activation syndrome, chronic pain, GERD, anxiety/depression, prior hysterectomy 2023 with post- op infection requiring drainage at [facility] with admission for diarrhea. In review
with patient she has not felt well since prior infection with hysterectomy. She began with diarrhea around beginning of September and was in ER 09/07 with mild distention of colon on CT and possible gastritis. She was offered supportive care and
discharge. She admits she went to [facility] and was treated around 09/10 with Augmentin for 4 days but they were unclear of source. She continued with diarrhea and describes it as up to 10 stool daily with variable amounts. She did have
stool studies around 09/20 and reports they were all negative. She also admit to multiple medication changes unclear as given medication from several providers but admits to using valium every several days and Cymbalta starting at 20mg in July
then 30mg then wean to off. In addition to diarrhea she admits to nausea without vomiting, gagging, chills, chronic GERD, lower abdominal pain, and denies blood or black in stools. Ct on admission as noted. Hx EGD in past at [facility] and attempted
colonoscopy but was unable to prep with POTS and passing out and then had flex sig but unsure of results. On admission WBC 20,100, hbg 16.3, normal platelets, stable chemistry with glucose 145. Prior reviewed fecal herman 695 from 12/2024.
09/07/25- CT Abd/pelvis W Iv Cont
1. Mild distention of the proximal colon.
2. 1.4 cm cyst in the right ovary.
3. Mild wall thickening throughout the stomach (possibly gastritis).
4. Previous hysterectomy.
5. Grade 1 anterolisthesis of L5 on S1 secondary to bilateral L5 pars interarticularis spondylolysis.
10/04/25 CT Abd/pelvis W Iv Cont
1. Fluid within the proximal colon, consistent with diarrhea. No evidence of significant colitis or intestinal obstruction.
2. Right adnexal corpus luteal cyst. Prior hysterectomy.
3. Bilateral pars defects at L5, associated with grade 1 anterolisthesis of L5 on S1.
-diarrhea
-leukocytosis
-abdominal pain
-gagging
-prior CT witjh gastritis
other med problems:
POTs, Oz Danlos, fibromyalgia, MAST cell activation syndrome, chronic pain, anxiety/depression, prior hysterectomy 2023 with post-op infection
PLAN:
etiology of diarrhea with abdominal pain and nausea related to infectious etiology, IBD with prior noted fecal herman elevation, medication related as admits to multiple changes of meds vs other
currently no stools since admission -- she reports neg stool studies 09/20 neg and discussed repeating as were done several weeks ago
also discussed colonoscopy -- she was concerned with prior inability to prep with pots
will have her further review with Dr. Wolfe
reviewed with Dr. Gómez as pt agreeable for Psych and admits to changing her meds on her own prior to admission
cont clear diet- as consider colonoscopy
add CRP and ESR
will obtain taoism and abiton records
-
-
Thank you for consultation and allowing me to participate in the patient's care. Please call the online retailer GI physician during the after hours with any questions or concerns.
[2025-10-04 14:50] LABS: C-Reactive Protein < 5.00 mg/L (0.0-10.00)
[2025-10-04] MEDS: INDERAL PO ×2 (15:51→21:52)
[2025-10-04] MEDS: TYLENOL 650 MG PO ×2 (17:53→21:53)
[2025-10-04] MEDS: GAVILAX 238 GM PO (17:56)
--- NOTE | 2025-10-04 18:00 | PTCARENOTE ---
Patient found walking around room with bed alarm going off. Stated to patient to please ring call [facility] for help when getting up as she is considered a fall risk. Patient states repeatedly that she is aware alarm will go off if she gets up, but is
unwilling to wait for staff help when she needs to get up to the bathroom. Went over these topics several times with patient with same outcome.
[2025-10-04] MEDS: ATARAX 25 MG PO (21:37)
[2025-10-04] MEDS: MAALOX 30 ML PO (23:19)
[2025-10-05] MEDS: GAVILAX 119 GM PO (03:54)
[2025-10-05] MEDS: LR 1000 IV ×2 (03:54→09:58)
[2025-10-05] MEDS: ZOSYN 50 IV (05:29)
--- NOTE | 2025-10-05 05:39 | PTCARENOTE ---
At the beginning of shift pt was belligerent and telling staff that she 'didn't sign up for alarms going off every time I want to go and take a shit.'. Pt stated she would be noncompliant with policy of calling staff for assistance to the bathroom
no matter what staff told her or did. Reviewed hospital safety policy, particularly in light of the pt's hx of POTS and beginning a bowel prep, that staff should escort the pt to the bathroom. Pt stated she wanted to leave AMA. [employer] contracting manager notified,
who came to talk with the pt. Pt stated she would stay. Pt has been much less verbally aggressive and more compliant throughout the shift. Tolerating bowel prep thus far and even utilizing call butterfield appropriately at times. No s/s of distress
assessed. Will continue to monitor.
[2025-10-05 07:00] VITALS: BP 90/55
[2025-10-05 07:33] LABS: Hematocrit 35.8 % (37.0-47.0); Hemoglobin 12.5 g/dL (12.0-16.0); Mean Corp Hgb Conc. 34.9 g/dL (33.0-37.0); Mean Corpuscular Volume 83.1 fL (81.0-99.0); Platelet Count 192 10^3/uL (130-400); Red Cell Dist. Width 12.7 % (11.5-14.5)
[2025-10-05 08:29] LABS: Blood Urea Nitrogen 6 mg/dl (7-17); Calcium 8.5 mg/dl (8.4-10.2); Carbon Dioxide 27 mmol/L (22-30); Chloride 107 mmol/L (98-107); Estimated Creatinine Clearance 79 ml/min; Glucose 82 mg/dl (70-99); Potassium 4.0 mmol/L (3.5-5.1); Sodium 135 mmol/L (135-145); eGFR > 60.00
[2025-10-05 09:09] VITALS: BP 138/89; BP_SYST 18
--- NOTE | 2025-10-05 09:12 | W.PN.HOSP.TC ---
Today's Communication/Plan
-
C-scope
Assessment / Plan
Assessment / Plan
Physical exam:
General: Well Developed, Well Nourished and No Apparent Distress
HEENT: Normocephalic, Atraumatic and Moist Mucous Membranes
Respiratory: Clear to Auscultation; Negative Wheezes, Rales or Rhonchi
Cardiac: Regular Rhythm and S1/S2
GI: Soft, Nontender and Nondistended
Musculoskeletal: No Clubbing, No Cyanosis and No Edema
Neuro: Awake, Alert and Oriented, no neurological deficit
Psych: Calm
A/P:
Abdominal pain:
Initially concern for colitis/enteritis but seems to be less likely and rather irritable bowel syndrome seems most likely
Colonoscopy unremarkable but follow-up biopsy as outpatient and small hemorrhoids
Advance diet
Stop IV fluid
Stop antibiotics
Leukocytosis:
Likely reactive
White blood cell count down to normal today
Stop antibiotics today
Observe off antibiotics
Depression/anxiety/ADHD:
GI [facility]OPER mentioned to me yesterday about psychiatry eval--> I talked to patient today and she does not think she needs psychiatric evaluation as inpatient.
Okay to continue her antidepressants and anxiolytics
Possible history of mast cell activation syndrome/fibromyalgia/Zhanna-Danlos/POTS:
Follow-up outpatient
DVT prophylaxis:
Add Lovenox SQ
CODE STATUS:
Full code
Total time spent on today's encounter was 35 minutes which included time spent in counseling the patient/family regarding diagnosis and treatment plan as listed above, goals of care, and symptom management. Case was discussed with nursing staff,
specialists, and care coordinators/case management. All labs and imaging personally reviewed by me. Remainder the time spent in detailed review of previous records, lab data, imaging, and other medical provider documentation.
Anticipated Discharge: Within 24 hours
Subjective/Interval History
-
Date of Service: October 05, 2025
Patient feels better today overall. No nausea vomiting. Afebrile
Objective Data
-
Labs:
Laboratory Results
10/05/25
06:54
WBC 8.8
Hgb 12.5
Hct 35.8 L
Plt Count 192 D
Sodium 135
Potassium 4.0
Chloride 107
Carbon Dioxide 27
BUN 6 L
Creatinine 0.9
Glucose 82
Calcium 8.5
Vital Signs:
Vital Signs
Temp Pulse Resp BP Pulse Ox
97.5 F 82 18 138/89 100
10/05/25 09:09 10/05/25 09:09 10/05/25 09:09 10/05/25 09:09 10/05/25 09:09
I&O
10/04/25 10/05/25 10/06/25
06:59 06:59 06:59
Intake Total 1147 / 1147
Balance 1147 / 1147
[2025-10-05] MEDS: PEPCID 20 MG PO ×2 (09:58→20:52)
[2025-10-05] MEDS: BUSPAR 10 MG PO ×3 (09:58→21:01)
[2025-10-05] MEDS: NEURONTIN 600 MG PO (09:58)
[2025-10-05 10:00] VITALS: BP 105/58
[2025-10-05] MEDS: INDERAL PO ×3 (10:02→21:01)
--- NOTE | 2025-10-05 14:14 | W.PN.UPDATE ---
Update Note
Progress Note Update
Colonoscopy normal
Recommend stool studies still not done d/w RN
If stool negative ok to give imodium prn
Will check celiac as well
Recommend outpatient GI follow up
If diarrhea improved tomorrow ok GI POV for dc
D/w hospitalist
GI will sign off
[2025-10-05 15:03] VITALS: BP 103/57
[2025-10-05] MEDS: LOVENOX 40 MG SC (17:11)
[2025-10-05] MEDS: ATARAX 25 MG PO (21:00)
[2025-10-05 23:26] VITALS: BP 103/65
[2025-10-06 07:00] VITALS: BP 107/69
[2025-10-06] MEDS: NEURONTIN 600 MG PO (07:55)
[2025-10-06] MEDS: INDERAL PO ×3 (07:55→15:01)
[2025-10-06] MEDS: PEPCID 20 MG PO ×2 (07:56→20:31)
[2025-10-06] MEDS: BUSPAR 10 MG PO ×3 (07:56→21:44)
[2025-10-06 07:57] LABS: Blood Urea Nitrogen 8 mg/dl (7-17); Calcium 8.6 mg/dl (8.4-10.2); Carbon Dioxide 26 mmol/L (22-30); Chloride 109 mmol/L (98-107); Estimated Creatinine Clearance 89 ml/min; Glucose 82 mg/dl (70-99); Potassium 4.0 mmol/L (3.5-5.1); Sodium 136 mmol/L (135-145); eGFR > 60.00
[2025-10-06 08:10] LABS: Hematocrit 37.6 % (37.0-47.0); Hemoglobin 13.1 g/dL (12.0-16.0); Mean Corp Hgb Conc. 34.8 g/dL (33.0-37.0); Mean Corpuscular Volume 85.5 fL (81.0-99.0); Nucleated Red Blood Cells % 0 %; Platelet Count 208 10^3/uL (130-400); Red Cell Dist. Width 12.4 % (11.5-14.5)
--- NOTE | 2025-10-06 11:53 | W.PN.HOSP.TC ---
Today's Communication/Plan
-
Anti-diarrhea
Assessment / Plan
Assessment / Plan
Physical exam:
General: Well Developed, Well Nourished and No Apparent Distress
HEENT: Normocephalic, Atraumatic and Moist Mucous Membranes
Respiratory: Clear to Auscultation; Negative Wheezes, Rales or Rhonchi
Cardiac: Regular Rhythm and S1/S2
GI: Soft, Nontender and Nondistended
Musculoskeletal: No Clubbing, No Cyanosis and No Edema
Neuro: Awake, Alert and Oriented, no neurological deficit
Psych: Calm
A/P:
Acute on chronic diarrhea:
Started Imodium and not helping much so we will try Lomotil
Can also consider Questran but will see how she responds to above regimen
Monitor renal function & electrolytes in a.m.
Celiac studies pending
Stool calprotectin pending
IGA levels pending
Serum tryptase pending
Abdominal pain:
Initially concern for colitis/enteritis but seems to be less likely and rather irritable bowel syndrome seems most likely
Colonoscopy unremarkable but follow-up biopsy as outpatient and small hemorrhoids
Advanced diet and tolerating but diarrhea as above.
Off IV fluids and antibiotics
Leukocytosis:
Likely reactive
White blood cell count remains normal today
Off antibiotics
Depression/anxiety/ADHD:
Okay to continue her antidepressants and anxiolytics
Possible history of mast cell activation syndrome/fibromyalgia/Zhanna-Danlos/POTS:
Follow-up outpatient
DVT prophylaxis:
Add Lovenox SQ
CODE STATUS:
Full code
Total time spent on today's encounter was 35 minutes which included time spent in counseling the patient/family regarding diagnosis and treatment plan as listed above, goals of care, and symptom management. Case was discussed with nursing staff,
specialists, and care coordinators/case management. All labs and imaging personally reviewed by me. Remainder the time spent in detailed review of previous records, lab data, imaging, and other medical provider documentation.
Anticipated Discharge: Within 24 hours
Subjective/Interval History
-
Date of Service: October 06, 2025
Patient still having significant amount of diarrhea. No nausea or vomiting. Afebrile
Objective Data
-
Labs:
Laboratory Results
10/06/25
06:39
WBC 10.5
Hgb 13.1
Hct 37.6
Plt Count 208
Sodium 136
Potassium 4.0
Chloride 109 H
Carbon Dioxide 26
BUN 8
Creatinine 0.8
Glucose 82
Calcium 8.6
Vital Signs:
Vital Signs
Temp Pulse Resp BP Pulse Ox
98.1 F 73 20 107/69 97
10/06/25 07:00 10/06/25 07:00 10/06/25 07:00 10/06/25 07:00 10/06/25 07:00
I&O
10/05/25 10/06/25 10/07/25
06:59 06:59 06:59
Intake Total 1147 / 1147 2340 / 2340
Output Total
Balance 1147 / 1147 2335 / 2335
[2025-10-06] MEDS: IMODIUM 2 MG PO (12:15)
[2025-10-06 15:00] VITALS: BP 99/67
[2025-10-06] MEDS: LOMOTIL 1 TABLET PO ×2 (15:00→21:43)
[2025-10-06] MEDS: LOVENOX 40 MG SC (17:37)
[2025-10-06] MEDS: ATARAX 25 MG PO (21:43)
[2025-10-06] MEDS: ZOFRAN 4 MG IV (21:43)
[2025-10-06] MEDS: CYMBALTA DELAYED RELEASE 30 MG PO (21:44)
[2025-10-06] MEDS: DESYREL 50 MG PO (21:44)
[2025-10-06] MEDS: INDERAL 20 MG PO (21:44)
[2025-10-06 23:18] VITALS: BP 101/61
[2025-10-07 07:05] VITALS: BP 103/58
[2025-10-07 08:18] LABS: Blood Urea Nitrogen 10 mg/dl (7-17); Calcium 8.4 mg/dl (8.4-10.2); Carbon Dioxide 24 mmol/L (22-30); Chloride 108 mmol/L (98-107); Estimated Creatinine Clearance 79 ml/min; Glucose 84 mg/dl (70-99); Potassium 4.1 mmol/L (3.5-5.1); Sodium 135 mmol/L (135-145); eGFR > 60.00
[2025-10-07] MEDS: BUSPAR 10 MG PO ×3 (08:39→21:06)
[2025-10-07] MEDS: LOMOTIL 1 TABLET PO ×3 (08:39→19:34)
[2025-10-07] MEDS: PEPCID 20 MG PO ×2 (08:39→19:34)
[2025-10-07] MEDS: INDERAL PO ×3 (08:39→21:07)
--- NOTE | 2025-10-07 10:41 | W.PN.HOSP.TC ---
Today's Communication/Plan
-
d/c planning
Assessment / Plan
Assessment / Plan
Physical exam:
General: Well Developed, Well Nourished and No Apparent Distress
HEENT: Normocephalic, Atraumatic and Moist Mucous Membranes
Respiratory: Clear to Auscultation; Negative Wheezes, Rales or Rhonchi
Cardiac: Regular Rhythm and S1/S2
GI: Soft, Nontender and Nondistended
Musculoskeletal: No Clubbing, No Cyanosis and No Edema
Neuro: Awake, Alert and Oriented, no neurological deficit
Psych: Calm
A/P:
Acute on chronic diarrhea:
Started Imodium and not helping much so we tried Lomotil-->seems better
Celiac studies pending
Stool calprotectin pending
IGA levels pending
Serum tryptase pending
Most of stools studies negative but some pending
Plan d/c either later today or in a.m.
Abdominal pain:
Initially concern for colitis/enteritis but seems to be less likely and rather irritable bowel syndrome seems most likely
Colonoscopy unremarkable but follow-up biopsy as outpatient and small hemorrhoids
Advanced diet and tolerating but diarrhea as above.
Off IV fluids and antibiotics
Leukocytosis:
Likely reactive
White blood cell count remains normal today
Off antibiotics
Depression/anxiety/ADHD:
Okay to continue her antidepressants and anxiolytics
Possible history of mast cell activation syndrome/fibromyalgia/Zhanna-Danlos/POTS:
Follow-up outpatient
DVT prophylaxis:
Add Lovenox SQ
CODE STATUS:
Full code
Total time spent on today's encounter was 35 minutes which included time spent in counseling the patient/family regarding diagnosis and treatment plan as listed above, goals of care, and symptom management. Case was discussed with nursing staff,
specialists, and care coordinators/case management. All labs and imaging personally reviewed by me. Remainder the time spent in detailed review of previous records, lab data, imaging, and other medical provider documentation.
Anticipated Discharge: Today
Subjective/Interval History
-
Date of Service: October 07, 2025
Patient reports diarrhea improving, no n/v. Afebrile
Objective Data
-
Labs:
Laboratory Results
10/07/25
06:51
Sodium 135
Potassium 4.1
Chloride 108 H
Carbon Dioxide 24
BUN 10
Creatinine 0.9
Glucose 84
Calcium 8.4
Vital Signs:
Vital Signs
Temp Pulse Resp BP Pulse Ox
98.0 F 68 14 103/58 95
10/07/25 07:05 10/07/25 07:05 10/07/25 07:05 10/07/25 07:05 10/07/25 07:05
I&O
10/06/25 10/07/25 10/08/25
06:59 06:59 06:59
Intake Total 2340 / 2340 2099
Output Total
Balance 2335 / 2335 2099
[2025-10-07 15:05] VITALS: BP 104/61
[2025-10-07] MEDS: LOVENOX 40 MG SC (17:05)
[2025-10-07] MEDS: ZOFRAN 4 MG IV (19:43)
[2025-10-07] MEDS: TYLENOL 650 MG PO (19:43)
[2025-10-07] MEDS: CYMBALTA DELAYED RELEASE 30 MG PO (21:06)
[2025-10-07] MEDS: DESYREL 50 MG PO (21:06)
[2025-10-07] MEDS: ATARAX 25 MG PO (21:06)
[2025-10-07] MEDS: NEURONTIN 600 MG PO (21:07)
[2025-10-07 23:53] VITALS: BP 96/54
[2025-10-08 07:05] VITALS: BP 98/60
--- NOTE | 2025-10-08 07:45 | W.PN.HOSP.TC ---
Today's Communication/Plan
-
Discharge planning today
Assessment / Plan
Assessment / Plan
Physical exam:
General: Well Developed, Well Nourished and No Apparent Distress
HEENT: Normocephalic, Atraumatic and Moist Mucous Membranes
Respiratory: Clear to Auscultation; Negative Wheezes, Rales or Rhonchi
Cardiac: Regular Rhythm and S1/S2
GI: Soft, Nontender and Nondistended
Musculoskeletal: No Clubbing, No Cyanosis and No Edema
Neuro: Awake, Alert and Oriented, no neurological deficit
Psych: Calm
A/P:
Acute on chronic diarrhea:
Started Imodium and not helping much so we tried Lomotil-->seems working better
Celiac studies pending
Stool calprotectin pending
IGA levels pending
Serum tryptase pending
Most of stools studies negative but some pending
Plan d/c today and patient agreeable
Abdominal pain:
Initially concern for colitis/enteritis but seems to be less likely and rather irritable bowel syndrome seems most likely
Colonoscopy unremarkable but follow-up biopsy as outpatient and small hemorrhoids
Advanced diet and tolerating but diarrhea as above.
Off IV fluids and antibiotics
Leukocytosis:
Likely reactive
White blood cell count remains normal today
Off antibiotics
Depression/anxiety/ADHD:
Okay to continue her antidepressants and anxiolytics
Possible history of mast cell activation syndrome/fibromyalgia/Zhanna-Danlos/POTS:
Follow-up outpatient
DVT prophylaxis:
Add Lovenox SQ
CODE STATUS:
Full code
Anticipated Discharge: Today
Subjective/Interval History
-
Date of Service: October 08, 2025
Patient feels diarrhea has improved substantially with Lomotil. No nausea or vomiting. Afebrile
Objective Data
-
Vital Signs:
Vital Signs
Temp Pulse Resp BP Pulse Ox
98.5 F 68 14 98/60 96
10/08/25 07:05 10/08/25 07:05 10/08/25 07:05 10/08/25 07:05 10/08/25 07:05
I&O
10/07/25 10/08/25 10/09/25
06:59 06:59 06:59
Intake Total 2099 420 / 420
Balance 2099 420 / 420
--- NOTE | 2025-10-08 08:38 | W.DCSUMMARY ---
Discharge Summary
Discharge Data
Date of Admission: 10/04/25
Date of Discharge: 10/08/25
Total time spent discharging patient (in min): 35
-
Pending Results: No
Hospital Course
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
diarrhea. GI consulted. Patient also has significant leukocytosis. Patient was started on IV fluids and broad-spectrum IV antibiotics. Stool culture negative for infection especially C. difficile and cryptosporidia and rest still pending but
very low suspicion. Leukocytosis improved back to normal. Antibiotics were discontinued and her leukocytosis remained normal and afebrile. GI did a colonoscopy on 10/05 and it basically came back unremarkable. GI did some colon biopsy rule out
microscopic colitis and will follow-up results as outpatient. Overall her clinical picture consistent with irritable bowel syndrome. She was started on Imodium and did not work that much and she was subsequently started on Lomotil and that helped
her much. Patient remains hemodynamically stable and afebrile and she is good to be discharged in stable condition today. Will have her follow-up with GI as outpatient.
Discharge duration: 35 minutes
Discharge Plan
-
Patient Disposition: Home (Routine Discharge)
Discharge Diagnosis/Procedures: Acute on chronic diarrhea. Leukocytosis-resolved.
Diet: Low Fat
Activity: As tolerated
Blood Work: Please PCP to order CBC, BMP within 1 week
Referrals:
Nikhil Acosta MD [Family Provider, Family Practice]
Prescriptions:
New
diphenoxylate-atropine 2.5-0.025 mg Tablet
1 tab PO Q4HPRN PRN (Reason: Diarrhea) Qty: 15 0RF
Continued
cyclobenzaprine 10 mg Tablet
10 mg PO TID PRN (Reason: muscle spasm)
fexofenadine 180 mg Tablet
180 mg PO HS
omeprazole 40 mg Capsule,Delayed Release(Dr/Ec)
40 mg PO DAILY
famotidine [Pepcid] 20 mg Tablet
20 mg PO BID
buspirone 10 mg Tablet
10 mg PO TID
gabapentin 300 mg Capsule
800 mg PO DAILY
hydroxyzine HCl 25 mg Tablet
25 mg PO HS
propranolol 20 mg Tablet
20 mg PO TID
hydroxyzine HCl 10 mg Tablet
10 mg PO TID PRN (Reason: pruritis)
cholecalciferol (vitamin D3) 25 mcg (1,000 unit) Tablet
50 mcg PO DAILY
lisdexamfetamine 30 mg Capsule
30 mg PO DAILY
fluticasone furoate 27.5 mcg/actuation Eek,Suspension
1 spray INTRANASAL DAILY
trazodone 50 mg Tablet
50 mg PO HS
duloxetine 30 mg Capsule,Delayed Release(Dr/Ec)
30 mg PO HS
Discharge Orders:
Discharge Patient (As Directed); Ordered 10/08/25
Ordered By: Adam Gómez
Discharge Date and Time
Print Language: TOGOLESE
[2025-10-08] MEDS: INDERAL PO (08:41)
[2025-10-08] MEDS: BUSPAR 10 MG PO (08:41)
[2025-10-08] MEDS: PEPCID 20 MG PO (08:41)
[2025-10-08] MEDS: LOMOTIL 1 TABLET PO (08:41)
[2025-10-08 13:10] VITALS: BP 123/80
[2025-10-10 14:06] LABS: Calprotectin, Fecal <5 ug/g (<=49)
== END 2025-10-08 14:10 | disposition home or self-care (01) | DRG 392 ==
LOC: 2 NORTH 05:47
PROVIDERS: Emergency Medicine; Nurse Practitioner Family; Physician Assistant; ADMITTING PHYSICIAN Hospitalist; ATTENDING PHYSICIAN Hospitalist; CONSULT PHYSICIAN Internal Medicine Gastroenterology; EMERGENCY PHYSICIAN Student in an Organized Health Care Education/Training Program; FAMILY PHYSICIAN Family Medicine
PROC: 0DBF8ZX Excision of Right Large Intestine, Via Natural or Artificial Opening Endoscopic, Diagnostic (ICD-10-PCS; 2025-10-05)
DX: K52.9 Noninfective gastroenteritis and colitis, unspecified (principal); F17.210 Nicotine dependence, cigarettes, uncomplicated; G90.A Postural orthostatic tachycardia syndrome [POTS]; M79.7 Fibromyalgia; F32.A Depression, unspecified; F41.9 Anxiety disorder, unspecified; G89.4 Chronic pain syndrome; D89.40 Mast cell activation, unspecified; K64.9 Unspecified hemorrhoids; Z79.899 Other long term (current) drug therapy
CPT/HCPCS: 74177; 80048; 80053; 81003; 82784; 83516; 83605; 83690; 83993; 84439; 84443; 84703; 85025; 85027; 86140; 86231; 87045; 87046; 87324; 87328; 87329; 87427; 87449; 88305; 89055; 96361; 96365; 96375; 96376; 99285; Q9967